=== PATIENT | male | born 1935 | race Caucasian/White ===

== ENCOUNTER 2019-11-19 18:53 | Inpatient (IN) ==
[2019-11-19] MEDS ORDERED: SODIUM CHLORIDE 0.9% 1000ML 1,000 ML IV SCH (19:45)
--- NOTE | 2019-11-19 20:00 | CT Scan Report ---
CT head/brain wo con CLINICAL HISTORY: Closed head injury. Head pain. Patient on anticoagulants. COMPARISON STUDY: No previous studies for comparison. TECHNIQUE: Axial CT of the brain is performed from the vertex to the skull base. IV contrast was not administered for this examination. A dose lowering technique was utilized adhering to the principles of ALARA. CT DOSE: FINDINGS: No intra or extra-axial mass lesions are visualized. There is no CT evidence of acute cortical infarc tion. There is no evidence of midline shift. There is no acute hemorrhage. No calvarial fractures ar e visualized. There are minor white matter hypodensities likely on a small vessel basis. There is no evidence of pathologic ventricular dilatation. There is no evidence of acute sinusitis IMPRESSION: No acute intracranial findings ACT 112: Negative or not required by law. Electronically signed by: Servando De La Torre M.D. 11/19/2019 7:58 PM
--- NOTE | 2019-11-19 20:02 | CT Scan Report ---
CT OF THE CERVICAL SPINE CLINICAL HISTORY: Neck pain status post trauma COMPARISON STUDY: No previous studies for comparison. CT DOSE: 1021.34 mGy.cm TECHNIQUE: CT scan of the cervical spine was performed from the skull base to the thoracic inlet. Gracy ges are reviewed in the axial, sagittal, and coronal planes. IV contrast was not administered for thi s examination. A dose lowering technique was utilized adhering to the principles of ALARA. FINDINGS: The visualized portions of the lung apices reveal no evidence of pneumothorax. The prevertebral soft tissues are normal. No fractures or subluxations are visualized. There are multilevel degenerative changes. There is exuberant calcification the posterior longitudina l ligament at the C2-3 level with secondary spinal canal narrowing. IMPRESSION: 1. No evidence of acute fracture or traumatic subluxation 2. 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 Electronically signed by: Servando De La Torre M.D. 11/19/2019 8:00 PM
--- NOTE | 2019-11-19 20:17 | XRay Report ---
XR chest 1V portable CLINICAL HISTORY: weakness COMPARISON STUDY: No previous studies for comparison. FINDINGS: The heart is enlarged. There are postsurgical changes of midline sternotomy. There is a lef t subclavian dual-chamber central venous pacemaker. There is no failure. There is no focal pulmonary consolidation. There are minor basilar atelectatic changes.[ IMPRESSION: No active disease in the chest. ACT 112: Negative or not required by law. Electronically signed by: Servando De La Torre M.D. 11/19/2019 8:15 PM
[2019-11-19 20:38] LABS: Basophils # (auto) 0.03 K/uL (0-0.2); Basophils % (auto) 0.2 %; Eosinophils # (auto) 0.02 K/uL (0-0.5); Eosinophils % (auto) 0.1 %; Hematocrit (blood only) 38.7 % (42-52); Hemoglobin 13.1 g/dL (14.0-18.0); Immature Granulocytes # (auto) 0.06 K/uL (0.00-0.02); Immature Granulocytes % (auto) 0.4 %; Lymphocytes # (auto) 1.52 K/uL (1.2-3.4); Lymphocytes % (auto) 9.3 %; Mean Corpuscular Hemoglobin 31.7 pg (25-34); Mean Corpuscular Hgb Conc 33.9 g/dL (32-36); Mean Corpuscular Volume 93.7 fL (80-100); Mean Platelet Volume 11.6 fL (7.4-10.4); Monocytes # (auto) 1.67 K/uL (0.11-0.59); Monocytes % (auto) 10.2 %; Neutrophils # (auto) 13.04 K/uL (1.4-6.5); Neutrophils % (auto) 79.8 %; Platelet Count 196 K/uL (130-400); RDW Coefficient of Variation 12.9 % (11.5-14.5); Red Blood Count 4.13 M/uL (4.7-6.1); White Blood Count 16.34 K/uL (4.8-10.8)
[2019-11-19 21:08] LABS: Alanine Aminotransferase 50 U/L (12-78); Albumin Globulin Ratio 0.8 (0.9-2); Albumin Level 3.5 gm/dl (3.4-5.0); Alkaline Phosphatase 81 U/L (45-117); Aspartate Aminotransferase 141 U/L (15-37); BUN Creatinine Ratio 11.1 (10-20); Bilirubin,Total 0.9 mg/dl (0.2-1); Blood Urea Nitrogen 22 mg/dl (7-18); Calcium 9.6 mg/dl (8.5-10.1); Carbon Dioxide 26 mmol/L (21-32); Chloride 97 mmol/L (98-107); Est GFR (African American) 34.7; Est GFR (Non-African American) 29.9; Globulin 4.3 gm/dl (2.5-4.0); Glucose 358 mg/dl (70-99); Magnesium 1.8 mg/dl (1.8-2.4); Potassium 4.4 mmol/L (3.5-5.1); Sodium 131 mmol/L (136-145); Thyroid Stimulating Hormone 0.637 uIu/ml (0.300-4.500); Total Protein 7.8 gm/dl (6.4-8.2)
[2019-11-19 21:11] LABS: Troponin I 0.944 ng/ml (0-0.045)
[2019-11-19] MEDS ORDERED: ASPIRIN CHEW 324 MG PO STA (21:18)
[2019-11-19] MEDS ORDERED: NovoLIN-R INSULIN PER UNIT CHARGE SC STA (21:19)
[2019-11-19 21:21] LABS: Beta-Hydroxybutyrate 3.64 mg/dl (0.2-2.81)
[2019-11-19 21:22] LABS: Appearance Urine Cloudy (Clear); Bacteria Urine Automated Negative (Negative); Bilirubin Urine Negative (Negative); Blood Urine 3+ (Negative); Color Urine Orange; Glucose Urine UA 2+ (Negative); Ketones Urine Negative (Negative); Leukocyte Esterase Urine 2+ (Negative); Nitrite Urine Negative (Negative); Protein Urine 2+ (Negative); Specific Gravity Urine 1.017 (1.000-1.030); Urobilinogen Urine Negative (Negative); WBC Urine Automated >30 /hpf (0-5); pH Urine 6.5 (4.5-7.5)
[2019-11-19] MEDS ORDERED: cefTRIAXone SODIUM 2,000 MG/70 ML BAG IV STA (21:26)
--- NOTE | 2019-11-19 21:41 | Emergency Department Note ---
History of Present Illness General Chief complaint: Fall Stated complaint: FALLS, HEAD INJURY Source: patient and family Mode of arrival: ambulatory Limitations: no limitations and other History of Present Illness Provider complaint: fall, weakness, lying on floor overnight. Onset (ago): week(s) 1 Maximum Pain Intensity: 6 This patient is an 84-year-old male who presents emergency department with complaints of 1 week of generalized weakness. Patient ambulated to the restroom early this morning and apparently fell prior to getting back in bed. Over several hours he was able to "shimmy" himself back up to the bed. Patient states at approximately 3 AM he fell out of bed once again. Patient was on the bed until 4 PM this afternoon when his son came in to use the restroom. Patient does complain of a small hematoma on the left side of his head. He denies any syncopal episode or complete loss of consciousness. Patient was then assisted into bed. Patient said he has had generalized weakness and has not felt well over the course of a week. He denies any nausea, vomiting, fever, shortness of breath or chest discomfort. Past Med/Surg History Medical History (Updated 11/19/19 @ 21:56 by Coleen Escobar MD) Diabetes mellitus Surgical History (Updated 11/19/19 @ 21:56 by Coleen Escobar MD) Hx of right BKA (Chronic) Social History Preferred Language: Greek Feels Safe at Home: Yes Smoking Status: Former smoker Review of Systems See HPI for pertinent positives & negatives. and A total of 10 systems reviewed and were otherwise negative Physical Exam Vital Signs Vital Signs - 24 hr 11/19/19 18:58 11/19/19 20:28 11/19/19 20:29 Temperature 36.6 C Temperature Source Oral Pulse Rate - Lying Pulse Rate - Sitting Pulse Rate - Standing Pulse Rate 89 Pulse Rate [Right Finger] 87 Pulse Rhythm [Right Finger] Regular Pulse Strength [Right Finger] Normal Respiratory Rate 18 20 Respiratory Effort / Characteristics Non-Labored Spontaneous Non-Labored Spontaneous Respiratory Depth Normal Normal Respiratory Pattern Regular Blood Pressure - Lying Blood Pressure - Sitting Blood Pressure- Standing Blood Pressure 129/74 Blood Pressure [Right Arm] 134/75 Blood Pressure Mean 92 Blood Pressure Mean [Right Arm] 94 Blood Pressure Position Sitting Pulse Oximetry 95 96 96 Oxygen Delivery Method Room Air Room Air Room Air Sepsis Recent Fever Within 48 Hours No Sepsis Action Taken by Nursing No Action Required 11/19/19 21:08 Temperature Temperature Source Pulse Rate - Lying 92 H Pulse Rate - Sitting 99 H Pulse Rate - Standing 96 H Pulse Rate Pulse Rate [Right Finger] Pulse Rhythm [Right Finger] Pulse Strength [Right Finger] Respiratory Rate Respiratory Effort / Characteristics Respiratory Depth Respiratory Pattern Blood Pressure - Lying 123/59 L Blood Pressure - Sitting 134/75 Blood Pressure- Standing 112/58 L Blood Pressure Blood Pressure [Right Arm] Blood Pressure Mean Blood Pressure Mean [Right Arm] Blood Pressure Position Pulse Oximetry Oxygen Delivery Method Sepsis Recent Fever Within 48 Hours Sepsis Action Taken by Nursing Vital signs reviewed. General: Chronically ill-appearing 84 yo male, in no significant distress. HEENT: No scleral icterus, PERRLA, neck supple. Atraumatic. Cardiovascular: Regular rate and rhythm, no extra sounds. Pulmonary: Clear to auscultation bilaterally, normal work of breathing. Abdomen: Soft, nontender, nondistended, positive bowel sounds. Musculoskeletal: Atraumatic, no peripheral edema. Right below the knee amputation. Neurologic: Patient awake alert and oriented x 3, follows commands appropriately. Answers questions. Skin: Warm, dry, no rash Course Administered Medications Sodium Chloride (Nss 1000ml) 1,000 mls @ 125 mls/hr IV .Q8H YENNI Stop: 11/20/19 03:44 Last Admin: 11/19/19 20:28 Dose: 125 mls/hr Documented by: [id number] Ceftriaxone Sodium (Rocephin) 2,000 mg in 70 mls @ 140 mls/hr IV NOW STA Stop: 11/19/19 21:55 Last Admin: 11/19/19 21:32 Dose: 140 mls/hr Documented by: [id number] Discontinued Medications Aspirin (Aspirin) 324 mg PO NOW STA Stop: 11/19/19 21:19 Last Admin: 11/19/19 21:28 Dose: 324 mg Documented by: [id number] Insulin Human Regular (Novolin R U-100 Per Unit) 10 units SC NOW STA Stop: 11/19/19 21:20 Last Admin: 11/19/19 21:27 Dose: 10 units Documented by: [id number] Cosigned by: [id number] Medical Decision Making Differential Diagnosis Differential includes acute coronary syndrome, myocardial infarction, CVA, TIA, anemia, infection, pneumonia, UTI, pyelonephritis, poor nutrition, dehydration, electrolyte disturbance,hypoglycemia. Laboratory Data Attestation: I reviewed the patient's lab results. Result diagrams: 11/19/19 20:23 11/19/19 20:23 Lab Results 11/19/19 11/19/19 11/19/19 Range/Units 20:23 20:23 21:10 WBC 16.34 H (4.8-10.8) K/uL RBC 4.13 L (4.7-6.1) M/uL Hgb 13.1 L (14.0-18.0) g/dL Hct 38.7 L (42-52) % MCV 93.7 (80-100) fL MCH 31.7 (25-34) pg MCHC 33.9 (32-36) g/dL RDW Std Deviation 44.0 (36.4-46.3) fL RDW Coeff of [place] 12.9 (11.5-14.5) % Plt Count 196 (130-400) K/uL MPV 11.6 H (7.4-10.4) fL Immature Gran % (Auto) 0.4 % Neut % (Auto) 79.8 % Lymph % (Auto) 9.3 % [place] % (Auto) 10.2 % Eos % (Auto) 0.1 % Baso % (Auto) 0.2 % Immature Gran # (Auto) 0.06 H (0.00-0.02) K/uL Neut # (Auto) 13.04 H (1.4-6.5) K/uL Lymph # (Auto) 1.52 (1.2-3.4) K/uL [place] # (Auto) 1.67 H (0.11-0.59) K/uL Eos # (Auto) 0.02 (0-0.5) K/uL Baso # (Auto) 0.03 (0-0.2) K/uL Sodium 131 L (136-145) mmol/L Potassium 4.4 (3.5-5.1) mmol/L Chloride 97 L (98-107) mmol/L Carbon Dioxide 26 (21-32) mmol/L Anion Gap 9.0 (3-11) BUN 22 H (7-18) mg/dl Creatinine 1.99 H (0.6-1.4) mg/dl Est Cr Clr Drug Dosing Not Reportable Est GFR ( Amer) 34.7 Est GFR (Non-Af Amer) 29.9 BUN/Creatinine Ratio 11.1 (10-20) Glucose 358 H* (70-99) mg/dl Calcium 9.6 (8.5-10.1) mg/dl Magnesium 1.8 (1.8-2.4) mg/dl Total Bilirubin 0.9 (0.2-1) mg/dl AST 141 H (15-37) U/L ALT 50 (12-78) U/L Alkaline Phosphatase 81 (45-117) U/L Troponin I 0.944 H* (0-0.045) ng/ml Total Protein 7.8 (6.4-8.2) gm/dl Albumin 3.5 (3.4-5.0) gm/dl Globulin 4.3 H (2.5-4.0) gm/dl Albumin/Globulin Ratio 0.8 L (0.9-2) Beta-Hydroxybutyric Acd 3.64 H (0.2-2.81) mg/dl TSH 0.637 (0.300-4.500) uIu/ml Urine Color [place] Urine Appearance Cloudy A (Clear) Urine pH 6.5 (4.5-7.5) Ur Specific [place] 1.017 (1.000-1.030) Urine Protein 2+ H (Negative) Urine Glucose (UA) 2+ H (Negative) Urine Ketones Negative (Negative) Urine Blood 3+ H (Negative) Urine Nitrite Negative (Negative) Urine Bilirubin Negative (Negative) Urine Urobilinogen Negative (Negative) Ur Leukocyte Esterase 2+ H (Negative) Urine WBC (Auto) >30 H (0-5) /hpf Urine RBC (Auto) 10-30 H (0-4) /hpf U Hyaline Cast (Auto) 1-5 (0-5) /lpf U Epithel Cells (Auto) 5-10 H (0-5) /lpf Urine Bacteria (Auto) Negative (Negative) Imaging Data Attestation: I personally reviewed and interpreted this imaging study as follows: Radiologist's Impression: CT head/brain wo con CLINICAL HISTORY: Closed head injury. Head pain. Patient on anticoagulants. COMPARISON STUDY: No previous studies for comparison. TECHNIQUE: Axial CT of the brain is performed from the vertex to the skull base. IV contrast was not administered for this examination. A dose lowering technique was utilized adhering to the principles of ALARA. CT DOSE: FINDINGS: No intra or extra-axial mass lesions are visualized. There is no CT evidence of acute cortical infarction. There is no evidence of midline shift. There is no acute hemorrhage. No calvarial fractures are visualized. There are minor white matter hypodensities likely on a small vessel basis. There is no evidence of pathologic ventricular dilatation. There is no evidence of acute sinusitis IMPRESSION: No acute intracranial findings ACT 112: Negative or not required by law. Electronically signed by: Servando De La Torre M.D. 11/19/2019 7:58 PM Dictated: 11/19/191956 Transcribed: 11/19/191956CT OF THE CERVICAL SPINE CT C-Spine CLINICAL HISTORY: Neck pain status post trauma COMPARISON STUDY: No previous studies for comparison. CT DOSE: 1021.34 mGy.cm TECHNIQUE: CT scan of the cervical spine was performed from the skull base to the thoracic inlet. Images are reviewed in the axial, sagittal, and coronal planes. IV contrast was not administered for this examination. A dose lowering technique was utilized adhering to the principles of ALARA. FINDINGS: The visualized portions of the lung apices reveal no evidence of pneumothorax. The prevertebral soft tissues are normal. No fractures or subluxations are visualized. There are multilevel degenerative changes. There is exuberant calcification the posterior longitudinal ligament at the C2-3 level with secondary spinal canal narrowing. IMPRESSION: 1. No evidence of acute fracture or traumatic subluxation 2. 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 Electronically signed by: Servando De La Torre M.D. 11/19/2019 8:00 PM Dictated: 11/19/191957 Transcribed: 11/19/191957 XR chest 1V portable CLINICAL HISTORY: weakness COMPARISON STUDY: No previous studies for comparison. FINDINGS: The heart is enlarged. There are postsurgical changes of midline sternotomy. There is a left subclavian dual-chamber central venous pacemaker. There is no failure. There is no focal pulmonary consolidation. There are minor basilar atelectatic changes.[ IMPRESSION: No active disease in the chest. ACT 112: Negative or not required by law. Electronically signed by: Servando De La Torre M.D. 11/19/2019 8:15 PM Dictated: 11/19/192014 Transcribed: 11/19/192014 ECG Data Attestation: I personally reviewed and interpreted this ECG as follows: Indication: + weakness Rate (beats per minute): 87 Rhythm: + sinus rhythm ECG Intervals/blocks: + First degree AV block and + Normal QT-c ECG ST segments: + Nonspecific ST abnormalities ECG Findings: no PACs and no PVCs Comparison ECG Date: no prior available Blood Pressure Blood Pressure Findings: Elevated blood pressure Blood Pressure Disposition: further management by hospitalist Head Trauma GCS Score: 15 MDM Narrative An order for cardiac monitoring was placed and the patient was found to be in a sinus rhythm with first-degree AV block at 87 bpm. This patient was evaluated and appeared to be in no significant distress. IV access was obtained and laboratory work was drawn. Patient was hydrated gently with normal saline solution. CT of the head and cervical spine was performed and reveals no evidence of acute traumatic finding. EKG reveals no evidence of acute ischemia. Patient has no records at our facility and [facility]. Laboratory work reveals a WBC of 16, troponin of 0.9 and a positive UA. Patient was given 2 g of IV ceftriaxone. I did discuss the findings with the patient's daughter. Patient and family agree to hospitalization. The hospitalist service was consulted for further management. Impression & Plan Hx of right BKA, Acute hyperglycemia, UTI (urinary tract infection) Discharge Plan Visit Data Chief Complaint: Fall Stated Complaint: FALLS, HEAD INJURY ED Provider: Coleen Escobar Discharge Problem: Hx of right BKA, Acute hyperglycemia, UTI (urinary tract infection) Forms Stand Alone Forms: [facility] Discharge Problem: UTI (urinary tract infection) Qualifiers: Urinary tract infection type: acute cystitis Hematuria presence: without hematuria Qualified Code(s): N30.00 - Acute cystitis without hematuria
[2019-11-19 22:05] LABS: Creatine Kinase 9017 U/L (39-308)
[2019-11-19 22:19] LABS: INR 1.1 (0.9-1.1); Prothrombin Time 11.4 Seconds (9.0-12.0)
--- NOTE | 2019-11-19 22:52 | History & Physical Report ---
Date of Service November 19, 2019 Assessment & Plan (1) UTI (urinary tract infection): 84 yo M with PMH DM w/neuropathy, Hypothyroidism, HLD, CAD with CABGx3 presents with weakness after mechanical fall at home where he was unable to get up found to have positive UA, elevated CK, elevated troponin. Rhabdomyolysis -CK 9017 on admission. Repeat in AM. Urine with myoglobinuria. JOSÉ -nontraumatic, likely 2/2 muscle compression -gentle IVF with NSS at 100 mls/hr. Unclear of pt's EF, as he is new to our facility Elevated Trop -admit to med tele -Trop 0.944 on admission. Initially thought to be likely 2/2 demand with low concern for ACS. Repeat trop increased to 7.60 while pt still remained asymptomatic. Repeat trop pending -EKG reveals no evidence of acute ischemia. Repeat EKG unchanged: Sinus rhythm with 1st degree A-V block -decision made to start standard heparin gtt w/o bolus given considerable increase in trop level. Pt ASA initiated in ED UTI -UA: 2+LE, >30 WBC. WBC 16.34 on admission -urine cx pending -likely explaining pt's generalized weakness -Coverage with IV Ceftriaxone Fall -CT of the head and cervical spine was performed and reveals no evidence of acute traumatic finding -PT/OT eval pending -Fall precautions ordered CAD/HLD -cont ASA 81mg, carvedilol 3.125mg, simvastatin 20mg DM w/Neuropathy -hold home metformin. SSI -cont gabapentin 300 mg Hypothyroidism -cont levothyroxine 50mcg FEN/GI: NSS at 100. DM Diet DVT Prophylaxis: IV Heparin, SCD's Full Code Dispo: [employer] [place] History of Present Illness Chief Complaint: fall Primary Care Provider: RAHUL PCP 84 yo M with PMH DM w/neuropathy, Hypothyroidism, HLD, CAD with CABGx3 presents after mechanical fall at home. He is [facility] and is new to [facility], unclear of most of PMH. Pt notes that he went to bed and woke up around 10 pm last night to use the restroom; however, he had forgotten to keep the light on before going to sleep and as a result tripped over rug and fell on backside. Pt has had generalized weakness over past week, and could not gather strength to pull himself up to bed immediately. Pt laid on floor from 10pm-4AM. Eventually was able to wiggle his way up to bed very slowly. At 6AM, pt fell out of bed onto floor this time landing on stomach and pinned his arms. Pt laid on floor this time from 6AM to 430PM when his son found him. Pt denies and F/N/V/D, chills, CP, preceding palpitations, SOB, syncope or near syncope, preceding lightheadedness/dizziness, LOC, urinary sxs of dysuria or urgency, sick contacts or recent travel. Admits to increased urinary frequency, but notes it is because he is drinking a lot more water as directed by his physician. Pt with no other acute concerns or complaints. Pertinent Labs: WBC 16.34, Hgb 13.1, Na 131, Cr 1.99, Glu 358, Beta Hydroxybutyric Acid 3.64, AST 141, CK 9017, Trop 0.944 UA: 2+ Glu, 3+ blood, 2+LE, >30 WBC EKG: Sinus Rhythm with 1st degree AV Block Head CT: No acute intracranial findings C-spine CT: No evidence of acute fracture or traumatic subluxation. 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 with secondary spinal canal narrowing CXR: No active disease in the chest ER Course: NSS, Insulin 10 units, ASA 324mg, IV Rocephin 2g Surgical Hx: R BKA Allergies Allergy/AdvReac Type Severity Reaction Status Date / Time lisinopril Allergy Unknown Hyperkalemi Verified 11/19/19 22:09 a Home Medications Home Medications Medication Instructions Recorded Confirmed Type aspirin 81 mg PO DAILY 11/19/19 11/19/19 History carvedilol 3.125 mg PO BID 11/19/19 11/19/19 History cholecalciferol (vitamin D3) 25 mcg PO DAILY 11/19/19 11/19/19 History [Vitamin D3] gabapentin 300 mg PO HS 11/19/19 11/19/19 History insulin aspart U-100 [Novolog See Rx Instructions .ROUTE .COMPLEX 11/19/19 11/19/19 History Flexpen U-100 Insulin] insulin glargine [Lantus U-100 45 unit SUBCUT QAM 11/19/19 11/19/19 History Insulin] levothyroxine 50 mcg PO QAM 11/19/19 11/19/19 History metformin 500 mg PO BID 11/19/19 11/19/19 History simvastatin 20 mg PO HS 11/19/19 11/19/19 History Past Med/Surg History Medical History (Updated 11/20/19 @ 23:40 by Nacho Wasserman MD) CAD (coronary artery disease) Diabetes mellitus Diabetic neuropathy Dyslipidemia Hypothyroidism Surgical History (Updated 11/20/19 @ 18:26 by Luis Antonio Campos MD) Hx of right BKA (Chronic) S/P CABG (coronary artery bypass graft) S/P placement of cardiac pacemaker Social History Preferred Language: Icelandic Communication Ability: Effective Beliefs That Will Affect Care: None Current Living Situation: Alone Other Information That Helps Us Care for You: No Feels Safe at Home: Yes Safety Concerns: Feels Safe At This Time Smoking Status: Former smoker Do You Dip or Chew Tobacco: Yes ; Second Hand Exposure: No ; Tobacco Cessation Education Requested by Patient: No Hx Alcohol Use: Yes Hx Substance Use: No Review of Systems Review of Systems: All systems reviewed & are unremarkable except as noted in HPI & below Physical Exam Constitutional: WD/WN, vitals as above Eyes: PERRL, conjunctivae normal, anicteric sclerae ENMT: external ear and nose normal, oropharynx normal Head atraumatic Respiratory: normal respiratory effort, lungs clear to auscultation Cardiovascular: RRR, no murmur, no edema Gastrointestinal (Abdomen): normal bowel sounds, soft, nontender, no hepatosplenomegaly Musculoskeletal: R BKA Skin: no rashes, warm and dry Trauma: + abrasion (on arms) Psychiatric: A+Ox3, euthymic affect Results & Data Results & Data ([facility]) Vital Signs (Past 12 Hours) Vital Signs Temp Pulse Pulse Resp BP BP Pulse Ox 11/19/19 22:08 89 20 121/68 91 11/19/19 20:29 87 20 134/75 96 11/19/19 20:28 96 11/19/19 18:58 36.6 C 89 18 129/74 95 Laboratory Results Laboratory Results - last 24 hr 11/19/19 11/19/19 11/19/19 20:23 20:23 20:23 WBC 16.34 H RBC 4.13 L Hgb 13.1 L Hct 38.7 L MCV 93.7 MCH 31.7 MCHC 33.9 RDW Std Deviation 44.0 RDW Coeff of [place] 12.9 Plt Count 196 MPV 11.6 H Immature Gran % (Auto) 0.4 Neut % (Auto) 79.8 Lymph % (Auto) 9.3 [place] % (Auto) 10.2 Eos % (Auto) 0.1 Baso % (Auto) 0.2 Immature Gran # (Auto) 0.06 H Neut # (Auto) 13.04 H Lymph # (Auto) 1.52 [place] # (Auto) 1.67 H Eos # (Auto) 0.02 Baso # (Auto) 0.03 PT 11.4 INR 1.1 APTT 28.0 PTT Ratio 1.0 Sodium 131 L Potassium 4.4 Chloride 97 L Carbon Dioxide 26 Anion Gap 9.0 BUN 22 H Creatinine 1.99 H Est Cr Clr Drug Dosing Not Reportable Est GFR ( Amer) 34.7 Est GFR (Non-Af Amer) 29.9 BUN/Creatinine Ratio 11.1 Glucose 358 H* POC Glucose Calcium 9.6 Magnesium 1.8 Total Bilirubin 0.9 AST 141 H ALT 50 Alkaline Phosphatase 81 Total Creatine Kinase 9017 H Troponin I 0.944 H* Total Protein 7.8 Albumin 3.5 Globulin 4.3 H Albumin/Globulin Ratio 0.8 L Beta-Hydroxybutyric Acd 3.64 H TSH 0.637 Urine Color Urine Appearance Urine pH Ur Specific [place] Urine Protein Urine Glucose (UA) Urine Ketones Urine Blood Urine Nitrite Urine Bilirubin Urine Urobilinogen Ur Leukocyte Esterase Urine WBC (Auto) Urine RBC (Auto) U Hyaline Cast (Auto) U Epithel Cells (Auto) Urine Bacteria (Auto) 11/19/19 11/19/19 21:10 22:18 WBC RBC Hgb Hct MCV MCH MCHC RDW Std Deviation RDW Coeff of [place] Plt Count MPV Immature Gran % (Auto) Neut % (Auto) Lymph % (Auto) [place] % (Auto) Eos % (Auto) Baso % (Auto) Immature Gran # (Auto) Neut # (Auto) Lymph # (Auto) [place] # (Auto) Eos # (Auto) Baso # (Auto) PT INR APTT PTT Ratio Sodium Potassium Chloride Carbon Dioxide Anion Gap BUN Creatinine Est Cr Clr Drug Dosing Est GFR ( Amer) Est GFR (Non-Af Amer) BUN/Creatinine Ratio Glucose POC Glucose 294 H Calcium Magnesium Total Bilirubin AST ALT Alkaline Phosphatase Total Creatine Kinase Troponin I Total Protein Albumin Globulin Albumin/Globulin Ratio Beta-Hydroxybutyric Acd TSH Urine Color [place] Urine Appearance Cloudy A Urine pH 6.5 Ur Specific [place] 1.017 Urine Protein 2+ H Urine Glucose (UA) 2+ H Urine Ketones Negative Urine Blood 3+ H Urine Nitrite Negative Urine Bilirubin Negative Urine Urobilinogen Negative Ur Leukocyte Esterase 2+ H Urine WBC (Auto) >30 H Urine RBC (Auto) 10-30 H U Hyaline Cast (Auto) 1-5 U Epithel Cells (Auto) 5-10 H Urine Bacteria (Auto) Negative Medications Administered Current Inpatient Medications Sodium Chloride (Nss 1000ml) 1,000 mls @ 125 mls/hr IV .Q8H YENNI Stop: 11/20/19 03:44 Last Admin: 11/19/19 20:28 Dose: 125 mls/hr Documented by: Code Status & VTE Plan Code Status FULL Supervising Physician Co-Signing Physician Notes Attending addendum: I have physically seen this patient, have supervised the medical residents activities, and agree with the H&P unless as otherwise noted. Assessment and Plan: Non-STEMI/CAD/hypertension- Troponin elevated 0.944. The patient will be admitted to telemetry for serial cardiac enzymes, serial EKG's, cardiac rhythm monitoring and a 2-D echocardiogram with Dopplers. Heparin drip standard concentration without bolus per protocol. Continue aspirin 81 mg daily, carvedilol 3.125 mg p.o. twice daily and simvastatin 20 mg p.o. daily. Consult cardiology. Rhabdomyolysis/UTI- CK elevated 9017, follow serially. Normal saline at 100 mils per hour. Ceftriaxone 1 g IV daily. Follow urine culture and sensitivities. Remainder of orders and notations as noted. Resident Activity Tracking Resident Involvement: Resident Care Provided Care Provided: Adult Hospital Medicine (1) UTI (urinary tract infection) Hematuria presence: without hematuria Urinary tract infection type: acute cystitis Qualified Code(s): N30.00 - Acute cystitis without hematuria
[2019-11-20] MEDS ORDERED: GLUCAGON FOR INJ 1 MG VIAL SQ PRN (01:12)
[2019-11-20] MEDS ORDERED: DEXTROSE 50% 50 ML SYRINGE IV PRN (01:12)
[2019-11-20] MEDS ORDERED: CARBOHYDRATES FOR HYPOGLYCEMIA PO PRN (01:12)
[2019-11-20] MEDS ORDERED: GLUCOSE 40% GEL 15 GM TUBE PO PRN (01:12)
[2019-11-20] MEDS ORDERED: ACETAMINOPHEN 325 MG TAB PO PRN (01:12)
[2019-11-20] MEDS ORDERED: ONDANSETRON INJ 2 MG/ML 2 ML VIAL IV PRN (01:12)
[2019-11-20] MEDS ORDERED: ALUMINUM/MAGNESIUM SUSP 30 ML UDC PO PRN (01:12)
[2019-11-20] MEDS ORDERED: SODIUM CHLORIDE 0.9% 1000ML 1,000 ML IV SCH (01:12)
[2019-11-20] MEDS ORDERED: GLUCOSE 10 TABS/TUBE PO PRN (01:12)
[2019-11-20] MEDS ORDERED: PATIENT'S HEIGHT AND/OR WEIGHT NEEDED SCH (01:30)
[2019-11-20 02:31] LABS: Basophils # (auto) 0.03 K/uL (0-0.2); Basophils % (auto) 0.2 %; Eosinophils # (auto) 0.14 K/uL (0-0.5); Eosinophils % (auto) 1.1 %; Hemoglobin 11.8 g/dL (14.0-18.0); Immature Granulocytes # (auto) 0.05 K/uL (0.00-0.02); Immature Granulocytes % (auto) 0.4 %; Lymphocytes # (auto) 2.08 K/uL (1.2-3.4); Mean Corpuscular Hemoglobin 31.1 pg (25-34); Mean Corpuscular Hgb Conc 33.7 g/dL (32-36); Mean Corpuscular Volume 92.3 fL (80-100); Mean Platelet Volume 11.2 fL (7.4-10.4); Monocytes % (auto) 9.2 %; Neutrophils # (auto) 9.49 K/uL (1.4-6.5); Neutrophils % (auto) 73.1 %; Platelet Count 172 K/uL (130-400); Red Blood Count 3.79 M/uL (4.7-6.1); White Blood Count 12.99 K/uL (4.8-10.8)
[2019-11-20 02:50] LABS: BUN Creatinine Ratio 13.1 (10-20); Calcium 8.8 mg/dl (8.5-10.1); Creatinine Clr Calc Pharmacy 30.1 ml/min; Est GFR (African American) 41.7
[2019-11-20] MEDS: HEPARIN SODIUM/DEXTROSE 25,000 UNITS/500 ML BAG IV SCH (05:41)
[2019-11-20] MEDS: LEVOTHYROXINE SODIUM 50 MCG TABLET PO SCH (05:50)
[2019-11-20] MEDS: Heparin IV Standard *NO* Bolus IV SCH ×2 (07:25→07:26)
[2019-11-20] MEDS: LACTATED RINGER'S 1,000 ML IV SCH ×3 (07:57→20:59)
[2019-11-20] MEDS ORDERED: PHARMACY GLYCEMIC MGMT CONSULT PRN (08:02)
[2019-11-20] MEDS: CHOLECALCIFEROL 1,000 UNITS 25 MCG TAB PO SCH (08:37)
[2019-11-20] MEDS: ASPIRIN 81 MG ECTAB PO SCH (08:37)
[2019-11-20] MEDS: INSULIN ASPART 100 UNITS/ML 3 ML PEN SC SCH ×4 (08:37→21:00)
[2019-11-20] MEDS: carvediloL 3.125 MG TAB PO SCH ×2 (08:37→20:15)
[2019-11-20] MEDS ORDERED: INSULIN GLARGINE SOLOSTAR 100 UNITS/ML 3 ML PEN SC SCH (09:00)
--- NOTE | 2019-11-20 10:55 | Pharmacy Report ---
Glycemic Control Consultation - Date of Service November 20, 2019 - Scope Scope: Glycemic Pharmacist consulted for glycemic control and to write orders per [facility] inpatient glycemic control protocol. - Objective Weight: 76.5 kg Accuchecks BSG (last 24hrs): 11/19/19 11/19/19 11/19/19 20:23 22:18 23:56 Glucose 358 H* POC Glucose 294 H 259 H 11/20/19 11/20/19 02:17 07:32 Glucose 180 H POC Glucose 133 H Laboratory Data (last 24hrs): 11/19/19 11/20/19 20:23 02:17 Potassium 4.4 4.0 Carbon Dioxide 26 25 Anion Gap 9.0 9.0 Creatinine 1.99 H 1.71 H Est Cr Clr Drug Dosing Not Reportable 30.1 Beta-Hydroxybutyric Acd 3.64 H - Recent Pertinent Medications Outpatient Anti-diabetic Regimen: * Lantus 45 units Qam, Novolog 5 units with breakfast/lunch, 22 units with dinner * A1c = pending Risk Factors for Insulin Resistance: * Diet: NPO - Assessment & Plan Assessment & Plan: ASSESSMENT: * 84 year old male presenting with weakness after mechanical fall at home, concern for UTI. PMHx significant for DM, hypothyroidism, HLD, CAD, CABG * Pharmacy consulted for glycemic management - NPO on admission * BSGs elevated last evening >300 - given 10 units of SQ insulin - fasting BSG this AM 133 mg/dL * Due to NPO status this AM will give ~30% of basal dose for this AM / split to BID dosing as unclear if BSGs well controlled at home. A1C pending for tomorrow PLAN FOR INPATIENT GLYCEMIC CONTROL: * Basal insulin * Lantus 14 units this AM given * Continue scale for Lantus BID based upon BSG - see MAR for further info * Bolus insulin * NovoLog per scale ACHS or Q6hrs while NPO * Goal Range: Low 100 mg/dL - High 160 mg/dL * Correction Factor: 25 mg/dL/unit * Nutritional / Prandial insulin per carb ratio of 1 unit per 8 grams CHO consumed * Please note that the plan above was derived based on current level of insulin resistance and hospital stress. These recommendations are appropriate for inpatient admission only. Plan of care upon discharge will need to be reassessed to avoid potential outpatient hypo/hyperglycemia. Thank you.
[2019-11-20 12:30] LABS: Partial Thromboplastin Ratio 1.7
[2019-11-20 12:34] LABS: Partial Thromboplastin Time 47.4 Seconds (21.0-31.0)
[2019-11-20] MEDS ORDERED: PERFLUTREN LIPID MICROSPHERE (DEFINITY) IV ONE (13:57)
--- NOTE | 2019-11-20 18:19 | XCELERA ---
[id number]
--- NOTE | 2019-11-20 18:36 | Cardiology Consultation ---
Date of Consultation November 20, 2019 Assessment & Plan (1) Non-ST elevation (NSTEMI) myocardial infarction: (2) CAD (coronary artery disease): (3) S/P CABG (coronary artery bypass graft): (4) Dyslipidemia: (5) Rhabdomyolysis: ASSESSMENT/PLAN: 1. NSTEMI: Troponin level can be elevated with rhabdomyolysis. Agree that troponin level is a bit more elevated than expected. He did have some ECG changes as well. Interestingly however he had no cardiac symptoms despite questioning several times. In light of lack of symptoms and renal insufficiency, would not recommend invasive ischemic evaluation at this time. Can consider outpatient myocardial perfusion study in the future to evaluate ischemic burden. Certainly, if he should develop anginal symptoms, would then reconsider invasive approach. Continue aspirin 81 mg daily. Heparin drip has been started by primary service. He did not present with acute coronary syndrome but given ECG changes and significant underlying CAD based on prior CABG history, can continue for a total of 48 hours. Continue beta-lizett. Continue statin therapy. 2. CAD s/p CABG x 3: No angina. No heart failure symptoms. Continue medical therapy. Request records for cardiac catheterization/CABG report. 3. Dyslipidemia: Continue statin therapy. 4. Pacemaker: Indication unknown. Follows with Cardiology through the [place] [facility]. 5. Rhabdomyolysis: As per primary service. 6. UTI: Given that he is feeling better with antibiotics, his weakness may have been related to his UTI. 7. Disposition: Recommended he follow-up with his primary unemployment examiner soon after discharge to further evaluate for symptoms and for planning of ischemic evaluation if deemed appropriate at that time.Cardiology will sign off at this time. Please call with any other questions or concerns. Thank you for allowing me to participate in the care of your patient. Please call for any other questions or concerns. Sincerely, Ankur Campos M.D. History of Present Illness Reason for Consultation: NSTEMI Requesting Physician: Dr. Wasserman Attending Physician: Nacho Wasserman MD History of Present Illness Mr. Ortega is a pleasant 84-year-old gentleman with history significant for multivessel CAD status post CABG x3 in 2005, pacemaker placement 2005, dyslipidemia, and type 2 diabetes. He was hospitalized on 11/19/2019 with rhabdomyolysis after spending several hours on the floor. His cardiac history significant for CABG x3 and pacemaker which were reportedly performed in 2005 at the [facility]. He states that he was experiencing exertional chest discomfort leading up to his CABG. He reports not having any cardiac catheterization since then and has not had any further angina. He follows with a unemployment examiner through the [place] system and believes that the unemployment examiner's name is Dr. Valdes. He follows up on an annual basis. He also has remote monitoring of his pacemaker available. On 11/18/2019, he felt weak throughout the day. At approximately 10:00 p.m. and later that night, he fell to the floor. He denies syncope. He denies chest pain, shortness of breath, palpitations. He was unable to get up and laid on the floor until 3:00 a.m.. He was then able to get back into bed with help only to once again end up on the floor at approximately 6:00 a.m.. He was unable to fully stand and slid downward out of bed. This time he laid on the floor until approximately 4:00 p.m.. He was found to have elevated CPK levels as well as elevated troponin levels. The troponin however increased and peaked at 11.4. His CPK level peak was 9017. He was also noted to have acute renal insufficiency although no baseline labs were available. But his creatinine has improved since presentation. He is being treated with antibiotics for UTI as his urine culture is growing gram-negative bacilli. He states that his strength has improved. He once denies chest discomfort, shortness of breath, or any bleeding such as melena, hematochezia, or hematuria. Review of systems: As above. Review of systems otherwise negative/unremarkable. Family history: No known premature CAD. Social history: He quit smoking in 1984 after approximately 2 packs per day for 10 years. No significant alcohol. No drug abuse. He is a . He lives alone. He has 4 sons and 1 daughter. He has 14 grandchildren and 25 great grandchildren. He is unaccompanied. Allergies Allergy/AdvReac Type Severity Reaction Status Date / Time lisinopril Allergy Unknown Hyperkalemi Verified 11/19/19 22:09 a Home Medications Home Medications Medication Instructions Recorded Confirmed Type aspirin 81 mg PO DAILY 11/19/19 11/19/19 History carvedilol 3.125 mg PO BID 11/19/19 11/19/19 History cholecalciferol (vitamin D3) 25 mcg PO DAILY 11/19/19 11/19/19 History [Vitamin D3] gabapentin 300 mg PO HS 11/19/19 11/19/19 History insulin aspart U-100 [Novolog See Rx Instructions .ROUTE .COMPLEX 11/19/19 11/19/19 History Flexpen U-100 Insulin] insulin glargine [Lantus U-100 45 unit SUBCUT QAM 11/19/19 11/19/19 History Insulin] levothyroxine 50 mcg PO QAM 11/19/19 11/19/19 History metformin 500 mg PO BID 11/19/19 11/19/19 History simvastatin 20 mg PO HS 11/19/19 11/19/19 History Patient History Medical History (Updated 11/20/19 @ 18:25 by Luis Antonio Campos MD) CAD (coronary artery disease) Diabetes mellitus Diabetic neuropathy Dyslipidemia Hypothyroidism Surgical History (Updated 11/20/19 @ 18:26 by Luis Antonio Campos MD) Hx of right BKA (Chronic) S/P CABG (coronary artery bypass graft) S/P placement of cardiac pacemaker Social History Preferred Language: Luxembourgish Communication Ability: Effective Beliefs That Will Affect Care: None Current Living Situation: Alone Other Information That Helps Us Care for You: No Feels Safe at Home: Yes Safety Concerns: Feels Safe At This Time Smoking Status: Former smoker Do You Dip or Chew Tobacco: Yes ; Second Hand Exposure: No ; Tobacco Cessation Education Requested by Patient: No Hx Alcohol Use: Yes Hx Substance Use: No Physical Exam Physical Exam: Gen.: No acute distress. Alert and oriented. HEENT: Anicteric sclera. Neck: No JVD. No bruits. Normal carotid upstrokes bilaterally. Cardiac: PMI was nondisplaced. No ventricular heave. Regular rate and rhythm. Normal S1-S2. No murmurs, rubs, or gallops. Pulmonary: Clear to auscultation bilaterally without wheezes, rales, or rhonchi. Abdomen: Soft, nontender, nondistended, with normoactive bowel sounds. No bruits noted. Extremities: 2+ right radial pulse. Weak left radial pulse. Right BKA noted. Left dorsalis pedis pulse is weak. No edema or cyanosis. Psychiatric: Affect appears appropriate. Results & Data ([facility]) Vital Signs (Past 12 Hours) Vital Signs Temp Pulse Pulse Resp BP Pulse Ox 11/20/19 16:09 85 11/20/19 15:47 36.5 C 73 18 107/65 94 11/20/19 13:44 92 11/20/19 11:28 37.0 C 77 18 110/68 90 11/20/19 07:29 63 11/20/19 07:06 37.7 C H 86 18 115/64 94 Intake & Output 11/18/19 11/19/19 11/20/19 11/21/19 06:59 06:59 06:59 06:59 Intake Total 738.75 / 738.75 1840.767 / 1840.767 Output Total 150 / 150 125 / 125 Balance 588.75 / 588.75 1715.767 / 1715.767 Weight 76.5 kg Laboratory Results Laboratory Results - last 24 hr 11/19/19 11/19/19 11/19/19 20:23 20:23 20:23 WBC 16.34 H RBC 4.13 L Hgb 13.1 L Hct 38.7 L MCV 93.7 MCH 31.7 MCHC 33.9 RDW Std Deviation 44.0 RDW Coeff of [place] 12.9 Plt Count 196 MPV 11.6 H Immature Gran % (Auto) 0.4 Neut % (Auto) 79.8 Lymph % (Auto) 9.3 Harper % (Auto) 10.2 Eos % (Auto) 0.1 Baso % (Auto) 0.2 Immature Gran # (Auto) 0.06 H Neut # (Auto) 13.04 H Lymph # (Auto) 1.52 Harper # (Auto) 1.67 H Eos # (Auto) 0.02 Baso # (Auto) 0.03 PT 11.4 INR 1.1 APTT 28.0 PTT Ratio 1.0 Sodium 131 L Potassium 4.4 Chloride 97 L Carbon Dioxide 26 Anion Gap 9.0 BUN 22 H Creatinine 1.99 H Est Cr Clr Drug Dosing Not Reportable Est GFR ( Amer) 34.7 Est GFR (Non-Af Amer) 29.9 BUN/Creatinine Ratio 11.1 Glucose 358 H* POC Glucose Estimat Average Glucose Hemoglobin A1c Calcium 9.6 Magnesium 1.8 Total Bilirubin 0.9 AST 141 H ALT 50 Alkaline Phosphatase 81 Total Creatine Kinase 9017 H Troponin I 0.944 H* Total Protein 7.8 Albumin 3.5 Globulin 4.3 H Albumin/Globulin Ratio 0.8 L Beta-Hydroxybutyric Acd 3.64 H TSH 0.637 Urine Color Urine Appearance Urine pH Ur Specific [place] Urine Protein Urine Glucose (UA) Urine Ketones Urine Blood Urine Nitrite Urine Bilirubin Urine Urobilinogen Ur Leukocyte Esterase Urine WBC (Auto) Urine RBC (Auto) U Hyaline Cast (Auto) U Epithel Cells (Auto) Urine Bacteria (Auto) 11/19/19 11/19/19 11/19/19 21:10 22:18 23:56 WBC RBC Hgb Hct MCV MCH MCHC RDW Std Deviation RDW Coeff of [place] Plt Count MPV Immature Gran % (Auto) Neut % (Auto) Lymph % (Auto) Harper % (Auto) Eos % (Auto) Baso % (Auto) Immature Gran # (Auto) Neut # (Auto) Lymph # (Auto) Harper # (Auto) Eos # (Auto) Baso # (Auto) PT INR APTT PTT Ratio Sodium Potassium Chloride Carbon Dioxide Anion Gap BUN Creatinine Est Cr Clr Drug Dosing Est GFR ( Amer) Est GFR (Non-Af Amer) BUN/Creatinine Ratio Glucose POC Glucose 294 H 259 H Estimat Average Glucose Hemoglobin A1c Calcium Magnesium Total Bilirubin AST ALT Alkaline Phosphatase Total Creatine Kinase Troponin I Total Protein Albumin Globulin Albumin/Globulin Ratio Beta-Hydroxybutyric Acd TSH Urine Color [place] Urine Appearance Cloudy A Urine pH 6.5 Ur Specific [place] 1.017 Urine Protein 2+ H Urine Glucose (UA) 2+ H Urine Ketones Negative Urine Blood 3+ H Urine Nitrite Negative Urine Bilirubin Negative Urine Urobilinogen Negative Ur Leukocyte Esterase 2+ H Urine WBC (Auto) >30 H Urine RBC (Auto) 10-30 H U Hyaline Cast (Auto) 1-5 U Epithel Cells (Auto) 5-10 H Urine Bacteria (Auto) Negative 11/20/19 11/20/19 11/20/19 02:17 02:17 02:17 WBC 12.99 H RBC 3.79 L Hgb 11.8 L Hct 35.0 L MCV 92.3 MCH 31.1 MCHC 33.7 RDW Std Deviation 44.0 RDW Coeff of [place] 13.0 Plt Count 172 MPV 11.2 H Immature Gran % (Auto) 0.4 Neut % (Auto) 73.1 Lymph % (Auto) 16.0 Harper % (Auto) 9.2 Eos % (Auto) 1.1 Baso % (Auto) 0.2 Immature Gran # (Auto) 0.05 H Neut # (Auto) 9.49 H Lymph # (Auto) 2.08 Harper # (Auto) 1.20 H Eos # (Auto) 0.14 Baso # (Auto) 0.03 PT INR APTT PTT Ratio Sodium 137 Potassium 4.0 Chloride 103 Carbon Dioxide 25 Anion Gap 9.0 BUN 22 H Creatinine 1.71 H Est Cr Clr Drug Dosing 30.1 Est GFR ( Amer) 41.7 Est GFR (Non-Af Amer) 36.0 BUN/Creatinine Ratio 13.1 Glucose 180 H POC Glucose Estimat Average Glucose Hemoglobin A1c Calcium 8.8 Magnesium Total Bilirubin AST ALT Alkaline Phosphatase Total Creatine Kinase 8196 H Troponin I 7.600 H* Total Protein Albumin Globulin Albumin/Globulin Ratio Beta-Hydroxybutyric Acd TSH Urine Color Urine Appearance Urine pH Ur Specific [place] Urine Protein Urine Glucose (UA) Urine Ketones Urine Blood Urine Nitrite Urine Bilirubin Urine Urobilinogen Ur Leukocyte Esterase Urine WBC (Auto) Urine RBC (Auto) U Hyaline Cast (Auto) U Epithel Cells (Auto) Urine Bacteria (Auto) 11/20/19 11/20/19 11/20/19 07:32 08:10 11:43 WBC RBC Hgb Hct MCV MCH MCHC RDW Std Deviation RDW Coeff of [place] Plt Count MPV Immature Gran % (Auto) Neut % (Auto) Lymph % (Auto) Harper % (Auto) Eos % (Auto) Baso % (Auto) Immature Gran # (Auto) Neut # (Auto) Lymph # (Auto) Harper # (Auto) Eos # (Auto) Baso # (Auto) PT INR APTT 47.4 H* PTT Ratio 1.7 Sodium Potassium Chloride Carbon Dioxide Anion Gap BUN Creatinine Est Cr Clr Drug Dosing Est GFR ( Amer) Est GFR (Non-Af Amer) BUN/Creatinine Ratio Glucose POC Glucose 133 H Estimat Average Glucose Hemoglobin A1c Calcium Magnesium Total Bilirubin AST ALT Alkaline Phosphatase Total Creatine Kinase Troponin I 11.400 H* Total Protein Albumin Globulin Albumin/Globulin Ratio Beta-Hydroxybutyric Acd TSH Urine Color Urine Appearance Urine pH Ur Specific [place] Urine Protein Urine Glucose (UA) Urine Ketones Urine Blood Urine Nitrite Urine Bilirubin Urine Urobilinogen Ur Leukocyte Esterase Urine WBC (Auto) Urine RBC (Auto) U Hyaline Cast (Auto) U Epithel Cells (Auto) Urine Bacteria (Auto) 11/20/19 11/20/19 11/20/19 11:46 16:34 16:34 WBC RBC Hgb Hct MCV MCH MCHC RDW Std Deviation RDW Coeff of [place] Plt Count MPV Immature Gran % (Auto) Neut % (Auto) Lymph % (Auto) Harper % (Auto) Eos % (Auto) Baso % (Auto) Immature Gran # (Auto) Neut # (Auto) Lymph # (Auto) Harper # (Auto) Eos # (Auto) Baso # (Auto) PT INR APTT PTT Ratio Sodium Potassium Chloride Carbon Dioxide Anion Gap BUN Creatinine Est Cr Clr Drug Dosing Est GFR ( Amer) Est GFR (Non-Af Amer) BUN/Creatinine Ratio Glucose POC Glucose 148 H Estimat Average Glucose Pending Hemoglobin A1c Pending Calcium Magnesium Total Bilirubin AST ALT Alkaline Phosphatase Total Creatine Kinase Troponin I 5.970 H* Total Protein Albumin Globulin Albumin/Globulin Ratio Beta-Hydroxybutyric Acd TSH Urine Color Urine Appearance Urine pH Ur Specific [place] Urine Protein Urine Glucose (UA) Urine Ketones Urine Blood Urine Nitrite Urine Bilirubin Urine Urobilinogen Ur Leukocyte Esterase Urine WBC (Auto) Urine RBC (Auto) U Hyaline Cast (Auto) U Epithel Cells (Auto) Urine Bacteria (Auto) 11/20/19 16:37 WBC RBC Hgb Hct MCV MCH MCHC RDW Std Deviation RDW Coeff of [place] Plt Count MPV Immature Gran % (Auto) Neut % (Auto) Lymph % (Auto) Harper % (Auto) Eos % (Auto) Baso % (Auto) Immature Gran # (Auto) Neut # (Auto) Lymph # (Auto) Harper # (Auto) Eos # (Auto) Baso # (Auto) PT INR APTT PTT Ratio Sodium Potassium Chloride Carbon Dioxide Anion Gap BUN Creatinine Est Cr Clr Drug Dosing Est GFR ( Amer) Est GFR (Non-Af Amer) BUN/Creatinine Ratio Glucose POC Glucose 210 H Estimat Average Glucose Hemoglobin A1c Calcium Magnesium Total Bilirubin AST ALT Alkaline Phosphatase Total Creatine Kinase Troponin I Total Protein Albumin Globulin Albumin/Globulin Ratio Beta-Hydroxybutyric Acd TSH Urine Color Urine Appearance Urine pH Ur Specific [place] Urine Protein Urine Glucose (UA) Urine Ketones Urine Blood Urine Nitrite Urine Bilirubin Urine Urobilinogen Ur Leukocyte Esterase Urine WBC (Auto) Urine RBC (Auto) U Hyaline Cast (Auto) U Epithel Cells (Auto) Urine Bacteria (Auto) Diagnostic Findings Telemetry personally reviewed: Sinus rhythm. No arrhythmia noted. ECGs personally reviewed: ECG 11/19/2019 at 8:05 p.m.: Sinus rhythm with first-degree AV block at 87 bpm. Nonspecific T-wave abnormality. ECG 11/20/2019 at 4:35 a.m.: Sinus rhythm with first-degree AV block at [address]/T-wave abnormality with T-wave abnormality more evident in the anterolateral leads. ECG 11/20/2019 at 7:50 a.m.: NSR 80 bpm. Anterior T-wave inversion. Echo 11/20/2019 personally reviewed: Normal LV size with low-normal systolic function. Estimated EF 50-55%. No obvious regional wall motion abnormalities. No significant valvular abnormalities. Chest x-ray 11/19/2019: No active disease per Radiology. Medications Administered Current Inpatient Medications Acetaminophen (Tylenol) 650 mg PO Q4H PRN PRN Reason: pain/fever Stop: 12/20/19 01:11 Al Hydrox/Mg Hydrox/Simethicone (Maalox) 30 ml PO Q6H PRN PRN Reason: Dyspepsia Stop: 12/20/19 01:11 Aspirin (Ecotrin Ectab) 81 mg PO DAILY YENNI Stop: 12/20/19 08:59 Last Admin: 11/20/19 08:37 Dose: 81 mg Documented by: Carvedilol (Coreg) 3.125 mg PO BID YENNI Stop: 12/20/19 08:59 Last Admin: 11/20/19 08:37 Dose: 3.125 mg Documented by: Dextrose (Dextrose 50%) 25 - 50 ml IV UD PRN; Protocol PRN Reason: Hypoglycemia Protocol Stop: 12/20/19 01:11 Gabapentin (Neurontin) 300 mg PO HS [facility] Stop: 12/20/19 20:59 Glucagon (Glucagen) 1 mg SQ UD PRN; Protocol PRN Reason: Hypoglycemia Protocol Stop: 12/20/19 01:11 Glucose (Dex4 Glucose) 4 - 8 tabs PO UD PRN; Protocol PRN Reason: Hypoglycemia Protocol Stop: 12/20/19 01:11 Glucose (Glucose 40%) 15 - 30 gm PO UD PRN; Protocol PRN Reason: Hypoglycemia Protocol Stop: 12/20/19 01:11 Heparin Sodium/Dextrose (Heparin Sodium/Dextrose) 25,000 units in 500 mls @ 24 mls/hr IV .[id number] YENNI; Protocol Stop: 12/20/19 05:04 Last Titration: 11/20/19 13:15 Dose: 1,200 units/hr, 24 mls/hr Documented by: Lactated Ringer's (Lr) 1,000 mls @ 150 mls/hr IV .[id number] YENNI Stop: 12/20/19 07:44 Last Admin: 11/20/19 14:28 Dose: 150 mls/hr Documented by: Ceftriaxone Sodium 1,000 mg/ (Dextrose) 50 mls @ 100 mls/hr IV Q24H [facility]; Protocol Stop: 11/22/19 20:59 Insulin Aspart (Novolog Flexpen) 0 units SC ACHS [facility]; Protocol Stop: 12/20/19 07:29 Last Admin: 11/20/19 17:21 Dose: 8 units Documented by: Insulin Glargine (Lantus Solostar Pen) 0 units SC BID YENNI; Protocol Stop: 12/20/19 20:59 Levothyroxine Sodium (Synthroid) 50 mcg PO DAILYBB [facility] Stop: 12/20/19 06:29 Last Admin: 11/20/19 05:50 Dose: 50 mcg Documented by: Miscellaneous (Carbohydrates For Hypoglycemia) 15 - 30 gm PO UD PRN PRN Reason: Hypoglycemia Protocol Stop: 12/20/19 01:11 Miscellaneous Information (Consult Glycemic Management Pharmacy) 1 ea N/A UD PRN PRN Reason: Consult Stop: 12/20/19 08:01 Ondansetron HCl (Zofran) 4 mg IV Q6H PRN PRN Reason: Nausea Stop: 12/20/19 01:11 Simvastatin (Zocor) 20 mg PO HS [facility] Stop: 12/20/19 20:59 Vitamin D (Vitamin D3) 1,000 units PO DAILY [facility] Stop: 12/20/19 08:59 Last Admin: 11/20/19 08:37 Dose: 1,000 units Documented by: PG Care Time/CCT Total # of Minutes Spent Total Time Spent with Patient: Total time spent is greater than 50% in coordination of care (as documented) at patient's floor/unit and/or counseling patient: Coding Level of Care Code 45397 Initial Inpt Care Lvl 3 Diagnoses Non-ST elevation (NSTEMI) myocardial infarction I21.4 CAD (coronary artery disease) I25.10 S/P CABG (coronary artery bypass graft) Z95.1 Dyslipidemia E78.5 Rhabdomyolysis M62.82
[2019-11-20] MEDS: cefTRIAXone SODIUM 1,000 MG in DEXTROSE 5% 50 ML IV SCH (20:12)
[2019-11-20] MEDS: GABAPENTIN 300 MG CAP PO SCH (20:14)
[2019-11-20] MEDS: SIMVASTATIN 20 MG TAB PO SCH (20:15)
[2019-11-20] MEDS ORDERED: cefTRIAXone SODIUM 1,000 MG in DEXTROSE 5% 50 ML IV SCH (21:00)
[2019-11-20] MEDS: INSULIN GLARGINE SOLOSTAR 100 UNITS/ML 3 ML PEN SC SCH (21:01)
--- NOTE | 2019-11-20 23:28 | Hospitalist Progress Note ---
Date of Service November 20, 2019 Assessment & Plan (1) Fall: Suspect initially fall from tripping. No LOC. Second slide off bed more likely due to lack of sleep and possible concussion from first fall. However possible confusion noted prior to this from family therefore more suggestive that UTI as a possible contributing factor. No significant injuries apparent from fall. No groin/back pain on exam or when walking to suggest need for hip or back imaging. (2) Elevated troponin: Appreciate cardiology review. Not acute coronary syndrome however given EKG changes (although not dynamic) and significant underlying CAD - continue IV heparin for a total of 48 hours. Follow up with cardiology for consideration of outpatient myocardial perfusion study (3) Rhabdomyolysis: Continue IV fluids. Despite prior CAD history he has no history of CHF and no current concerns for this on exam despite plenty of IV fluids given. Will continue to monitor. Trend CK daily (4) CAD (coronary artery disease): ASA, statin, BB. No ACEi/ARB likely secondary to BP. (5) S/P CABG (coronary artery bypass graft): as above. [facility] (6) Dyslipidemia: Continue simvastatin (7) UTI (urinary tract infection): Urine culture - GNR. Continue IV ceftriaxone pending full culture results. 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 Pt reported baseline Cr 1.4 therefore does not meet criteria for JOSÉ. (11) DVT prophylaxis: Continue IV heparin drip as above Admission and Anticipated Discharge Date Admission Date: November 19, 2019 Anticipated date of discharge: 11/22/19 Subjective Patient reports feeling well. No current concerns or questions. Significantly elevated troponin this morning therefore consulted cardiology - however patient denies any chest pain, shortness of breath, presyncope/syncope, palpitations, claudication. He denies any urinary symptoms such as dysuria, urinary frequency, new back pain, fever or chills. He denies any longstanding prostate symptoms such as terminal dribbling, poor stream, urinary frequency or nocturia. He currently feels well and at his baseline/ Recapped history with this patient and consistent with H&P. Reports initially tripping due to poor light in the middle of the night causing his initial fall and inability to get up. Managed to eventually get to his bed and lie down to fall asleep for 2 hours but then slid out of bed in the morning and spent multiple hours on the floor till his son found him. Updated his daughter over the phone by patient request. All questions and concerns answered pending echo report. Review of Systems Review of Systems: All systems reviewed & are unremarkable except as noted in HPI & below Physical Exam Constitutional: WD/WN, vitals as above Eyes: PERRL, conjunctivae normal, anicteric sclerae ENMT: external ear and nose normal, oropharynx normal Respiratory: normal respiratory effort, lungs clear to auscultation Cardiovascular: RRR, no murmur, no edema Gastrointestinal (Abdomen): normal bowel sounds, soft, nontender, no hepatosplenomegaly Musculoskeletal: no cyanosis or clubbing, extremities motor strength 5/5 Skin: no rashes, warm and dry Trauma: + abrasion (on arms) Neurologic: moves all extremities and awake; no focal motor deficits and not confused Speech / Cognition: normal speech Motor/Sensory: no tremor, no pronator drift and no sensory deficit Psychiatric: A+Ox3, euthymic affect Results & Data Results & Data ([facility]) Vital Signs (Past 12 Hours) Vital Signs Temp Pulse Pulse Resp BP Pulse Ox 11/20/19 16:09 85 11/20/19 15:47 36.5 C 73 18 107/65 94 11/20/19 13:44 92 11/20/19 11:28 37.0 C 77 18 110/68 90 11/20/19 07:29 63 11/20/19 07:06 37.7 C H 86 18 115/64 94 11/20/19 05:07 36.7 C 78 18 113/63 91 PG Care Time/CCT Total # of Minutes Spent Total Time Spent with Patient: Total time spent is greater than 50% in coordination of care (as documented) at patient's floor/unit and/or counseling patient: Coding Level of Care Code 28841 Subseq Hosp Care Lvl 3 Diagnoses Fall W19.XXXA Encounter type: initial encounter Elevated troponin R79.89 Rhabdomyolysis M62.82 CAD (coronary artery disease) I25.10 S/P CABG (coronary artery bypass graft) Z95.1 Dyslipidemia E78.5 UTI (urinary tract infection) N30.00 Hematuria presence: without hematuria Urinary tract infection type: acute cystitis Diabetes mellitus E11.65; Z79.4 Diabetes mellitus complication status: with hyperglycemia Diabetes mellitus intermodal truck driver insulin use: with intermodal truck driver use Diabetes mellitus type: type 2 Hx of right BKA Z89.511 Chronic kidney disease, stage 3 N18.3 DVT prophylaxis Z29.9 (1) UTI (urinary tract infection) Hematuria presence: without hematuria Urinary tract infection type: acute cystitis Qualified Code(s): N30.00 - Acute cystitis without hematuria (2) Diabetes mellitus Diabetes mellitus complication status: with hyperglycemia Diabetes mellitus detention insulin use: with intermodal truck driver use Diabetes mellitus type: type 2 Qualified Code(s): E11.65 - Type 2 diabetes mellitus with hyperglycemia; Z79.4 - [facility] (current) use of insulin (3) Fall Encounter type: initial encounter Qualified Code(s): W19.XXXA - Unspecified fall, initial encounter
[2019-11-21] MEDS: HEPARIN SODIUM/DEXTROSE 25,000 UNITS/500 ML BAG IV SCH ×2 (01:13→23:33)
[2019-11-21] MEDS: LACTATED RINGER'S 1,000 ML IV SCH ×2 (03:05→11:19)
--- NOTE | 2019-11-21 05:20 | Billing Data ---
Date of Service November 21, 2019 Coding Level of Care Code 11891 Initial Inpt Care Lvl 3
--- NOTE | 2019-11-21 05:23 | Electrocardiogram Report ---
Test Reason : Blood Pressure : / mmHG Vent. Rate : 087 BPM Atrial Rate : 087 BPM P-R Int : 236 ms QRS Dur : 102 ms QT Int : 354 ms P-R-T Axes : 068 000 096 degrees QTc Int : 425 ms Sinus rhythm with 1st degree A-V block Nonspecific ST and T wave abnormality Abnormal ECG No previous ECGs available Confirmed by Luis Antonio Campos ([id number]) on 11/21/2019 5:22:44 AM Referred By: REFERRED SELF Confirmed By:Luis Antonio Campos
--- NOTE | 2019-11-21 05:27 | Electrocardiogram Report ---
Test Reason : Blood Pressure : / mmHG Vent. Rate : 082 BPM Atrial Rate : 082 BPM P-R Int : 222 ms QRS Dur : 098 ms QT Int : 362 ms P-R-T Axes : 068 001 111 degrees QTc Int : 422 ms Sinus rhythm with 1st degree A-V block Nonspecific ST and T wave abnormality Abnormal ECG When compared with ECG of 19-NOV-2019 20:05, No significant change was found Confirmed by Luis Antonio Campos ([id number]) on 11/21/2019 5:27:49 AM Referred By: REFERRED SELF Confirmed By:Luis Antonio Campos
--- NOTE | 2019-11-21 05:34 | Electrocardiogram Report ---
Test Reason : Blood Pressure : / mmHG Vent. Rate : 080 BPM Atrial Rate : 080 BPM P-R Int : 194 ms QRS Dur : 096 ms QT Int : 370 ms P-R-T Axes : 057 -16 104 degrees QTc Int : 426 ms Normal sinus rhythm T wave abnormality, consider anterior ischemia Abnormal ECG When compared with ECG of 20-NOV-2019 04:35, T wave inversion more evident in Anterior leads Confirmed by Luis Antonio Campos ([id number]) on 11/21/2019 5:33:43 AM Referred By: REFERRED SELF Confirmed By:Luis Antonio Campos
[2019-11-21] MEDS: LEVOTHYROXINE SODIUM 50 MCG TABLET PO SCH (06:01)
[2019-11-21 06:12] LABS: Estimated Average Glucose 194 mg/dl; Hemoglobin A1C 8.4 % (4.5-5.6)
[2019-11-21 06:29] LABS: Hematocrit (blood only) 32.1 % (42-52); Hemoglobin 10.6 g/dL (14.0-18.0); Mean Corpuscular Hemoglobin 30.8 pg (25-34); Mean Corpuscular Volume 93.3 fL (80-100); Mean Platelet Volume 11.3 fL (7.4-10.4); Platelet Count 161 K/uL (130-400); RDW Coefficient of Variation 12.9 % (11.5-14.5); Red Blood Count 3.44 M/uL (4.7-6.1); White Blood Count 8.36 K/uL (4.8-10.8)
[2019-11-21 06:56] LABS: Partial Thromboplastin Ratio 2.4
[2019-11-21 07:01] LABS: BUN Creatinine Ratio 16.1 (10-20); Calcium 8.3 mg/dl (8.5-10.1); Creatinine Clr Calc Pharmacy 32.8 ml/min; Est GFR (African American) 46.2; Est GFR (Non-African American) 39.9; Potassium 3.8 mmol/L (3.5-5.1)
[2019-11-21 07:14] LABS: Partial Thromboplastin Time 67.8 Seconds (21.0-31.0)
[2019-11-21 07:20] LABS: Creatine Kinase MB 6.4 ng/ml (0.5-3.6); Troponin I 3.98 ng/ml (0-0.045)
[2019-11-21] MEDS: CHOLECALCIFEROL 1,000 UNITS 25 MCG TAB PO SCH (08:27)
[2019-11-21] MEDS: carvediloL 3.125 MG TAB PO SCH ×2 (08:28→20:39)
[2019-11-21] MEDS: ASPIRIN 81 MG ECTAB PO SCH (08:28)
[2019-11-21] MEDS: INSULIN GLARGINE SOLOSTAR 100 UNITS/ML 3 ML PEN SC SCH ×2 (08:29→20:41)
[2019-11-21] MEDS: INSULIN ASPART 100 UNITS/ML 3 ML PEN SC SCH ×4 (08:30→20:42)
[2019-11-21 14:16] LABS: Partial Thromboplastin Ratio 1.9
[2019-11-21 14:22] LABS: Partial Thromboplastin Time 52.1 Seconds (21.0-31.0)
--- NOTE | 2019-11-21 20:22 | Hospitalist Progress Note ---
Date of Service November 21, 2019 Assessment & Plan (1) Fall: Suspect initially fall from tripping. No LOC. Second slide off bed more likely due to lack of sleep and possible concussion from first fall. Exacerbated by UTI No significant injuries apparent from fall. No groin/back pain on exam or when walking to suggest need for hip or back imaging. (2) UTI (urinary tract infection): Urine culture - GNR. Continue IV ceftriaxone pending full culture results. (3) Elevated troponin: Appreciate cardiology review. Not acute coronary syndrome however given EKG changes (although not dynamic) and significant underlying CAD - continue IV heparin for a total of 48 hours. Follow up with cardiology for consideration of outpatient myocardial perfusion study (4) Rhabdomyolysis: Discontinue IV fluids given mild crackles on exam and improvement in CK Trend CK daily (5) CAD (coronary artery disease): ASA, statin, BB. No ACEi/ARB likely secondary to BP. (6) S/P CABG (coronary artery bypass graft): as above. [facility] (7) Dyslipidemia: Continue simvastatin. Lipid panel in AM. 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 Pt reported baseline Cr 1.4 therefore does not meet criteria for JOSÉ. (11) DVT prophylaxis: Continue IV heparin drip as above, will discontinue in AM Admission and Anticipated Discharge Date Admission Date: November 19, 2019 Subjective Patient reports doing well. No acute concerns or questions.. No chest pain, orthopnea, PND, palpitations, shortness of breath. No fever, chills or urinary symptoms. Updated his daughter over the phone. All questions answered Review of Systems Review of Systems: All systems reviewed & are unremarkable except as noted in HPI & below Physical Exam Constitutional: WD/WN, vitals as above Eyes: + anicteric sclerae; normal pupil size ENMT: external ear and nose normal, oropharynx normal Respiratory: no respiratory distress Auscultation: + crackles (fine crackles bibasal); no diminished lung sounds, no rales and no wheezes Cardiovascular: RRR, no murmur, no edema Gastrointestinal (Abdomen): normal bowel sounds, soft, nontender, no hepatosplenomegaly Musculoskeletal: no cyanosis or clubbing, extremities motor strength 5/5 Skin: no rashes, warm and dry Neurologic: moves all extremities and awake; no focal motor deficits and not confused Speech / Cognition: normal speech Motor/Sensory: no sensory deficit Psychiatric: A+Ox3, euthymic affect Results & Data Results & Data ([facility]) Vital Signs (Past 12 Hours) Vital Signs Temp Pulse Pulse Resp BP Pulse Ox 11/21/19 19:12 66 11/21/19 19:00 36.7 C 70 20 145/67 H 97 11/21/19 15:28 37.0 C 68 18 149/77 H 96 11/21/19 15:09 96 11/21/19 11:23 36.8 C 74 18 144/64 H 96 PG Care Time/CCT Total # of Minutes Spent Total Time Spent with Patient: Total time spent is greater than 50% in coordination of care (as documented) at patient's floor/unit and/or counseling patient: Coding Level of Care Code 62301 Subseq Hosp Care Lvl 2 Diagnoses Fall W19.XXXA Encounter type: initial encounter UTI (urinary tract infection) N30.00 Hematuria presence: without hematuria Urinary tract infection type: acute cystitis Elevated troponin R79.89 Rhabdomyolysis M62.82 CAD (coronary artery disease) I25.10 S/P CABG (coronary artery bypass graft) Z95.1 Dyslipidemia E78.5 Diabetes mellitus E11.65; Z79.4 Diabetes mellitus complication status: with hyperglycemia Diabetes mellitus residential insulin use: with truck terminal manager use Diabetes mellitus type: type 2 Hx of right BKA Z89.511 Chronic kidney disease, stage 3 N18.3 DVT prophylaxis Z29.9 (1) UTI (urinary tract infection) Hematuria presence: without hematuria Urinary tract infection type: acute cystitis Qualified Code(s): N30.00 - Acute cystitis without hematuria (2) Diabetes mellitus Diabetes mellitus complication status: with hyperglycemia Diabetes mellitus truck terminal manager insulin use: with residential use Diabetes mellitus type: type 2 Qualified Code(s): E11.65 - Type 2 diabetes mellitus with hyperglycemia; Z79.4 - shelter (current) use of insulin (3) Fall Encounter type: initial encounter Qualified Code(s): W19.XXXA - Unspecified fall, initial encounter
[2019-11-21] MEDS: GABAPENTIN 300 MG CAP PO SCH (20:36)
[2019-11-21] MEDS: cefTRIAXone SODIUM 1,000 MG in DEXTROSE 5% 50 ML IV SCH (20:38)
[2019-11-21] MEDS: SIMVASTATIN 20 MG TAB PO SCH (20:39)
[2019-11-22] MEDS: LEVOTHYROXINE SODIUM 50 MCG TABLET PO SCH (05:40)
[2019-11-22 08:23] LABS: Chol HDL Ratio 4; Cholesterol 118 mg/dl (0-200); HDL Cholesterol 31 mg/dl; LDL Cholesterol Calculated 63 mg/dl; Triglycerides 122 mg/dl (0-150); VLDL Cholesterol 24 mg/dl
[2019-11-22 08:24] LABS: BUN Creatinine Ratio 16.5 (10-20); Calcium 8.8 mg/dl (8.5-10.1); Creatinine Clr Calc Pharmacy 41.3 ml/min; Est GFR (African American) 58.1; Est GFR (Non-African American) 50.1; Potassium 3.8 mmol/L (3.5-5.1)
[2019-11-22] MEDS: ASPIRIN 81 MG ECTAB PO SCH (09:07)
[2019-11-22] MEDS: carvediloL 3.125 MG TAB PO SCH (09:08)
[2019-11-22] MEDS: INSULIN ASPART 100 UNITS/ML 3 ML PEN SC SCH ×2 (09:09→12:55)
[2019-11-22] MEDS: INSULIN GLARGINE SOLOSTAR 100 UNITS/ML 3 ML PEN SC SCH (09:09)
[2019-11-22] MEDS: CHOLECALCIFEROL 1,000 UNITS 25 MCG TAB PO SCH (09:10)
--- NOTE | 2019-11-22 13:15 | Pharmacy Report ---
Pharmacy Glycemic Short Note 2 - Date of Service November 22, 2019 - Glycemic Short BSG Results (Last 24 hours): 11/21/19 11/21/19 11/22/19 16:27 20:24 07:07 Glucose 157 H POC Glucose 171 H 204 H 11/22/19 11/22/19 07:34 11:22 Glucose POC Glucose 146 H 205 H OUTPATIENT ANTIDIABETIC REGIMEN: * Lantus 45 units Qam, Novolog 5 units with breakfast/lunch, 22 units with dinner * A1c = pending INPATIENT GLYCEMIC REGIMEN AND RISK FACTORS FOR INSULIN RESISTANCE: - Assessment & Plan ASSESSMENT: * 84 year old male presenting with weakness after mechanical fall at home, concern for UTI. PMHx significant for DM, hypothyroidism, HLD, CAD, CABG * Pharmacy consulted for glycemic management - NPO on admission * BSGs elevated last evening >300 - given 10 units of SQ insulin - fasting BSG this AM 133 mg/dL * Due to NPO status this AM will give ~30% of basal dose for this AM / split to BID dosing as unclear if BSGs well controlled at home. A1C pending for tomorrow 11/21 * Patient received 64 units of insulin yesterday * Heparin drip has been discontinued * Basal requirements likely between 40-50 units per day so will continue with same scale * Postprandials elevated -> will tighten CF/CR PLAN FOR INPATIENT GLYCEMIC CONTROL: * Hold outpatient oral diabetes medications * Basal insulin * Lantus SQ BID per the following scale: * 15 units for BSG < 110 * 20 units for BSG 110-180 * 25 units for BSG > 180 * Bolus insulin - tighten goal range slightly, tighten CF/CR * NovoLog per scale ACHS or Q6hrs while NPO * Goal Range: Low 110 mg/dL - High 150 mg/dL * Correction Factor: 20 mg/dL/unit * Nutritional / Prandial insulin per carb ratio of 1 unit per 7 grams CHO consumed PLAN FOR DISCHARGE: * A1c 8.4% on 11/21/19 * Goal A1c for age/comorbidities ~8% * Recommend to continue outpatient regimen on discharge, along with close outpatient f/u for titration if necessary
--- NOTE | 2019-11-22 14:29 | Discharge Summary ---
Date of Service November 22, 2019 Admission HPI Per Admitting Provider 84 yo M with PMH DM w/neuropathy, Hypothyroidism, HLD, CAD with CABGx3 presents after mechanical fall at home. [facility] and is new to [facility], unclear of most of PMH. Pt notes that he went to bed and woke up around 10 pm last night to use the restroom; however, he had forgotten to keep the light on before going to sleep and as a result tripped over rug and fell on backside. Pt has had generalized weakness over past week, and could not gather strength to pull himself up to bed immediately. Pt laid on floor from 10pm-4AM. Eventually was able to wiggle his way up to bed very slowly. At 6AM, pt fell out of bed onto floor this time landing on stomach and pinned his arms. Pt laid on floor this time from 6AM to 430PM when his son found him. Pt denies and F/N/V/D, chills, CP, preceding palpitations, SOB, syncope or near syncope, preceding lightheadedness/dizziness, LOC, urinary sxs of dysuria or urgency, sick contacts or recent travel. Admits to increased urinary frequency, but notes it is because he is drinking a lot more water as directed by his physician. Pt with no other acute concerns or complaints. Pertinent Labs: WBC 16.34, Hgb 13.1, Na 131, Cr 1.99, Glu 358, Beta Hydroxybutyric Acid 3.64, AST 141, CK 9017, Trop 0.944 UA: 2+ Glu, 3+ blood, 2+LE, >30 WBC EKG: Sinus Rhythm with 1st degree AV Block Head CT: No acute intracranial findings C-spine CT: No evidence of acute fracture or traumatic subluxation. 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 with secondary spinal canal narrowing CXR: No active disease in the chest ER Course: NSS, Insulin 10 units, ASA 324mg, IV Rocephin 2g Surgical Hx: R BKA Admission Exam Per Admitting Provider Constitutional: WD/WN, vitals as above Eyes: PERRL, conjunctivae normal, anicteric sclerae ENMT: external ear and nose normal, oropharynx normal Head atraumatic Respiratory: normal respiratory effort, lungs clear to auscultation Cardiovascular: RRR, no murmur, no edema Gastrointestinal (Abdomen): normal bowel sounds, soft, nontender, no hepatosplenomegaly Musculoskeletal: R BKA Skin: no rashes, warm and dry Trauma: + abrasion (on arms) Psychiatric: A+Ox3, euthymic affect Principal Diagnosis Fall Rhabdomyolysis Urine tract infection Elevated troponin Discharge Exam Constitutional WD/WN, vitals as above Eyes PERRL, conjunctivae normal, anicteric sclerae + anicteric sclerae; normal pupil size ENMT external ear and nose normal, oropharynx normal Respiratory normal respiratory effort, lungs clear to auscultation no respiratory distress Auscultation: + crackles (fine crackles bibasal); no diminished lung sounds, no rales and no wheezes Cardiovascular RRR, no murmur, no edema Gastrointestinal (Abdomen) normal bowel sounds, soft, nontender, no hepatosplenomegaly Musculoskeletal no cyanosis or clubbing, extremities motor strength 5/5 Skin no rashes, warm and dry Trauma: + abrasion (on arms) Neurologic moves all extremities and awake; no focal motor deficits and not confused Speech / Cognition: normal speech Motor/Sensory: no sensory deficit Psychiatric A+Ox3, euthymic affect Discharge Data Allergies Allergy/AdvReac Type Severity Reaction Status Date / Time lisinopril Allergy Unknown Hyperkalemi Verified 11/19/19 22:09 a Consultations 11/19/19 22:32 ED Decision to Admit Stat 11/20/19 07:35 Consult Cardiology Routine 11/20/19 14:55 Consult Health Information Management Routine Ordered Studies 11/19/19 19:26 CT cervical spine wo con Stat IMPRESSION: 1. No evidence of acute fracture or traumatic subluxation 2. 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 No definite regional wall motion abnormalities. No significant left ventricular hypertrophy. Right ventricular systolic function may be mildly reduced, but right ventricle not well visualized No significant valvular abnormalities visualized Hospital Course (1) Fall: Gerhard Ortega is an 84 year old male admitted to [facility] from November 18 to 2019 due to a fall with a prolonged period on the floor. Fall was felt to be originally mechanical but also complicated by weakness from a UTI treated with intravenous antibiotics ceftriaxone and transitioned to cefdinir on discharge for total antibiotic course of 7 days. Urine culture grew Morganella morganii resistant to Unasyn and Imipenem only. No prostate problems were suspected from history but he is at increased risk with his diabetes and had glucosuria on admission. HbA1C 8.4, he reports this is coming down and he has the rare hypoglycemic episode therefore no changes to his insulin regimen were made. He was dehydrated on admission and had rhabdomyolysis (CK 9017) on admission which was treated with IV fluids without him developing any congestive heart failure despite his CAD history. Cr improved to 1.3 on discharge. In addition his troponin trended up on his first day of admission (troponin I maximum 11.4 ng/ml). ACS not suspected as he had no chest pain, shortness of breath or dynamic EKG changes. Diagnosed with type 2 NSTEMI, demand-ischemia. Given his cardiac history with prior CABG he was treated with IV heparin for 48 hours. Echocardiogram showed no regional wall motion abnormalities. He was advised to follow up with his [place] helper driver after discharge. On discharge he reported being back to his baseline self. (2) UTI (urinary tract infection): (3) Elevated troponin: (4) Rhabdomyolysis: (5) CAD (coronary artery disease): (6) S/P CABG (coronary artery bypass graft): (7) Dyslipidemia: (8) Diabetes mellitus: (9) Hx of right BKA: (10) Chronic kidney disease, stage 3: Total Time Total Time Spent Total Time Spent (In Minutes): 35 Total Time Includes: Examination of the Patient, Discharge Planning and Medication Reconciliation Discharge Plan Discharge Items Patient Disposition: Home - Home Health Services Reason For Visit: UTI,ELEVATED TROP Discharge Diagnosis: Fall Rhabdomyolysis Urine tract infection Elevated troponin Activity: Resume your previous activity Non-emergency contact: Maintenance Aide Call non-emergency contact if: you have any medication questions and your symptoms worsen Follow-up/Referrals: PCP,NO [Primary Care Provider] - Diet: Carb Consistent or DM2 and Heart Healthy Addtl Attending Provider Instructions: You were admitted to [facility] from November 18 to 2019 due to a fall with a prolonged period on the floor. You were diagnosed with a urine tract infection treated with intravenous antibiotics and can now safely transition to oral antibiotics as prescribed below to finish the course. The fall and prolonged period which you were on the floor caused breakdown of your muscles causing a condition known as rhabdomyolysis. You were treated for this with intravenous fluids to keep your kidneys hydrated as a complication of this can be renal failure, however your renal function improved as your dehydr ation was treated. This complication is unlikely to occur at this stage and you are medically stable for discharge. In addition you were noted to have a raised heart enzyme (troponin I maximum 11.4 ng/ml). This can go up with rhabdomyolysis but usually not to such a high degree. Therefore you were reviewed by cardiology given your significant. This was not a heart attack but suspect this represented demand-ischemia which is also sometimes referred to as a type 2 NSTEMI. No regional wall abnormalities consistent with a heart attack were noted on echocardiogram. Recommend you follow up with your [place] helper driver regarding this in the next month. Kind regards, Dr Nacho Wasserman Pending Studies at Discharge: No Stand-Alone Forms: My [facility] Payment Services, Smoking Cessation Medications and DC Order Prescriptions: New cefdinir 300 mg capsule 300 mg PO Q12H 4 Days Qty: 8 RF: 0 Continued metformin 500 mg Tablet 500 mg PO BID RF: 0 carvedilol 6.25 mg Tablet 3.125 mg PO BID RF: 0 Lantus U-100 Insulin 100 unit/mL Solution 45 unit SUBCUT QAM RF: 0 aspirin 81 mg Tablet,Delayed Release (Dr/Ec) 81 mg PO DAILY RF: 0 levothyroxine 50 mcg Tablet 50 mcg PO QAM RF: 0 simvastatin 20 mg Tablet 20 mg PO HS RF: 0 gabapentin 300 mg Capsule 300 mg PO HS RF: 0 cholecalciferol (vitamin D3) [Vitamin D3] 25 mcg (1,000 unit) Capsule 25 mcg PO DAILY RF: 0 insulin aspart U-100 [Novolog Flexpen U-100 Insulin] 100 unit/mL (3 mL) Insulin Pen See Rx Instructions .ROUTE .COMPLEX RF: 0 Discharge Orders: Discharge Order (Routine); Ordered 11/22/19 Ordered By: Nacho Ramos/Other Patient Handouts: Hyperglycemia, Hypoglycemia, Diabetes Type 2 Managing Admission Data Admit Date/Time: 11/19/19 23:50 Attending Provider: Nacho Wasserman Admit Provider: Vargas Guardado Primary Care Provider: PCP,NO Other Providers: Sheldon De Dios ; Luis Antonio Campos Other Interventions: Discharge Summary Assessment (RN) Last Done: 11/22/19 14:39 DC Date/Time DO NOT enter until pt leaves facility: 11/22/19 15:30 Coding Level of Care Code D/C Day Management >30 mins Diagnoses Fall W19.XXXA Encounter type: initial encounter UTI (urinary tract infection) N30.00 Hematuria presence: without hematuria Urinary tract infection type: acute cystitis Elevated troponin R79.89 Rhabdomyolysis M62.82 CAD (coronary artery disease) I25.10 S/P CABG (coronary artery bypass graft) Z95.1 Dyslipidemia E78.5 Diabetes mellitus E11.65; Z79.4 Diabetes mellitus complication status: with hyperglycemia Diabetes mellitus chcf insulin use: with chcf use Diabetes mellitus type: type 2 Hx of right BKA Z89.511 Chronic kidney disease, stage 3 N18.3
== END 2019-11-22 15:30 | disposition home health service (06) | DRG 558 ==
LOC: ED 18:53 → SUATTDRO 23:50 → 3E 23:50 → 2N 11-20 05:08

== ENCOUNTER 2023-04-22 14:38 | Inpatient (IN) ==
[2023-04-22 15:52] LABS: Basophils # (auto) 0.06 K/uL (0.00-0.20); Basophils % (auto) 0.7 %; Eosinophils # (auto) 0.27 K/uL (0.00-0.50); Eosinophils % (auto) 3.1 %; Hematocrit (blood only) 43.6 % (42.0-52.0); Hemoglobin 14.1 g/dl (14.0-18.0); Immature Granulocytes # (auto) 0.04 K/uL (0.01-0.20); Immature Granulocytes % (auto) 0.5 %; Lymphocytes # (auto) 1.38 K/uL (1.20-3.40); Lymphocytes % (auto) 15.9 %; Mean Corpuscular Hemoglobin 30.6 pg (25.0-34.0); Mean Corpuscular Hgb Conc 32.3 g/dL (32.0-36.0); Mean Corpuscular Volume 94.6 fL (80.0-100.0); Mean Platelet Volume 11.1 fL (9.4-12.4); Monocytes # (auto) 0.77 K/uL (0.11-0.59); Monocytes % (auto) 8.9 %; Neutrophils # (auto) 6.15 K/uL (1.40-6.50); Neutrophils % (auto) 70.9 %; Platelet Count 255 K/uL (130-400); RDW Coefficient of Variation 13.4 % (11.5-14.5); RDW Standard Deviation 46.8 fL (36.4-46.3); Red Blood Count 4.61 M/uL (4.70-6.10); White Blood Count 8.67 K/ul (4.8-10.8)
[2023-04-22 16:09] LABS: Alanine Aminotransferase 15 U/L (7-52); Albumin Globulin Ratio 1.2 (0.9-2); Albumin Level 4.3 gm/dl (3.4-5.0); Alkaline Phosphatase 110 U/L (34-104); Anion Gap 6 (3-11); Aspartate Aminotransferase 17 U/L (13-39); BUN Creatinine Ratio 12.6 (10-20); Bilirubin,Total 0.6 mg/dl (0.2-1.0); Blood Urea Nitrogen 21 mg/dl (6-23); Calcium 10.1 mg/dl (8.6-10.3); Carbon Dioxide 27 mmol/L (21-32); Chloride 102 mmol/L (98-107); Est GFR (Non-African American) 36.2 ml/min; Globulin 3.5 gm/dl (2.5-4.0); Glucose 159 mg/dl (70-99(Fasting)); Potassium 4.4 mmol/L (3.5-5.1); Sodium 135 mmol/L (136-145); Total Protein 7.8 gm/dl (6.0-8.3)
[2023-04-22] MEDS ORDERED: AMPICILLIN/SULBACTAM SOD 3,000 MG in SODIUM CHLOR 0.9% MINI-B 100 ML IV STA (20:31)
[2023-04-22 20:52] LABS: C Reactive Protein 6.59 mg/dl (0-0.5)
[2023-04-22] MEDS ORDERED: PIPERACILLIN/TAZOBACTAM 4.5 GM/100 ML BAG IV ONE (21:17)
[2023-04-22] MEDS ORDERED: DAPTOMYCIN IV SCH (21:30)
--- NOTE | 2023-04-22 21:54 | History & Physical Report ---
Date of Service April 22, 2023 Assessment & Plan (1) Pressure ulcer of left foot: Plan: 87 M with PMH of CAD s/p CABG, pacemaker implantation, CKD 3, T2DM, who presents with ulceration of left foot. Now admitted for intravenous antibiotic treatment, evaluation for osteomyelitis. Pressure ulcer of left foot -Afebrile, normal white count. Lactate normal. ESR severely elevated. CRP moderately elevated. -Radiology read of XR foot pending. -Likely due to dorsal surface compression from footwear liner. Ulcer is large and appears necrotic but unstageable. Second also developing proximally to large ulcer. Patient also has multiple risk factors for necrosis: T2DM, CAD, dyslipidemia. -Now s/p IV daptomycin, Zosyn in the ED. * Admit to MedSur telemetry. * Await radiology read of XR foot for definitive osteomyelitis r/o. * Continue IV daptomycin, Zosyn. * Await blood, wound culture results T2DM/acute hyperglycemia -Chronic, with peripheral neuropathy on gabapentin. -Managed on metformin 500 mg twice daily, basal bolus regimen: Lantus 45 units SQ every morning, NovoLog 32 units total daily (5 units at breakfast, 5 units at lunch, 22 units with evening meal). -BSG 159 on admission. * Continue insulin on adjusted regimen: 30 units Lantus every morning, SSI NovoLog at mealtime (CF = 20; CR = 10; goal range 100-140). ACHS BSG checks. * Continue holding metformin until discharge * Continue home gabapentin CAD -Chronic. S/p CABG, pacemaker implantation. Managed on aspirin, carvedilol, simvastatin. * Continue home aspirin 81 mg daily, carvedilol 3.125 mg twice daily * Due to interaction with daptomycin. CKD3 -Creatinine 1.67, around baseline. GFR 36.2 (stage IIIb). * Trend BMP. Hypothyroidism -Chronic. Managed on levothyroxine 50 mcg every morning. * Continue home levothyroxine Code: DNR/DNI Dispo: Med-Surg telemetry FEN/GI: Heart healthy/carb consistent DVT Prophylaxis: Heparin 5000 u q12h PT/OT: Yes Consults: Wound care nursing Case Management: No (2) Diabetes mellitus: (3) Acute hyperglycemia: (4) CAD (coronary artery disease): (5) Chronic kidney disease, stage 3: History of Present Illness Primary Care Provider: [facility] Ziyad is an 87-year-old man with a history of CKD 3, coronary artery disease s/p CABG, pacemaker, T2DM, and right BKA, who presented to the emergency room with a complaint of worsening ulceration and discoloration of left great toe since Tuesday. Patient wears a shoe liner in his left foot for support. He reports walking more than usual on his walker in his home, after which she noticed the initial ulceration. This morning, his son noticed that the ulcer had turned black and urged him to come to the emergency room for further evaluation. He denies fever, chills, purulent discharge, or swelling of the foot. In the ED, vitals are within normal limits. Notable labs include: ESR 83/CRP 6.59, BSG 159, Cr 1.67, alk phos 110. WBC was normal at 8.67. Lactate was normal at 1.6. XR toe pending radiology read at time of admission. He received IV Zosyn and daptomycin, and hospitalist service was consulted for admission. Allergies Allergy/AdvReac Type Severity Reaction Status Date / Time lisinopril Allergy Unknown Hyperkalemi Verified 11/19/19 22:09 a Home Medications Medication Instructions Recorded Confirmed Type aspirin 81 mg tablet,delayed 81 mg PO DAILY 11/19/19 11/19/19 History release carvedilol 6.25 mg tablet 3.125 mg PO BID 11/19/19 11/19/19 History cholecalciferol (vitamin D3) 25 25 mcg PO DAILY 11/19/19 11/19/19 History mcg (1,000 unit) capsule (Vitamin D3) gabapentin 300 mg capsule 300 mg PO HS 11/19/19 11/19/19 History insulin aspart U-100 100 unit/mL See Rx Instructions .Route .COMPLEX 11/19/19 11/19/19 History (3 mL) subcutaneous pen (Novolog FlexPen U-100 Insulin aspart) insulin glargine 100 unit/mL 45 unit subcut QAM 11/19/19 11/19/19 History subcutaneous solution (Lantus U-100 Insulin) levothyroxine 50 mcg tablet 50 mcg PO QAM 11/19/19 11/19/19 History metformin 500 mg tablet 500 mg PO BID 11/19/19 11/19/19 History simvastatin 20 mg tablet 20 mg PO 11/19/19 11/19/19 History Past Med/Surg History Medical History (Updated 04/23/23 @ 14:34 by Crissy Duncan MD) CAD (coronary artery disease) Diabetes mellitus Diabetic neuropathy Dyslipidemia Hypothyroidism Surgical History Hx of right BKA S/P CABG (coronary artery bypass graft) S/P placement of cardiac pacemaker Social History Smoking Status: Never smoker Second Hand Exposure: No; Do You Dip or Chew Tobacco: Yes; Hx Alcohol Use: No Hx Substance Use: No Preferred Language: Cameroonian Communication Ability: Effective Biztalk Developer Required: No Beliefs That Will Affect Care: None Current Living Situation: Alone Current Living Situation Comment: Lives home alone, has business management associate/surgeon's assistant Feels Safe at Home: Yes Safety Concerns: Feels Safe At This Time Assistive Devices: Cane and Glasses Review of Systems Review of Systems: All systems reviewed & are unremarkable except as noted in HPI & below Physical Exam Physical Exam: General: No acute distress HEENT: PERRLA. Normal conjunctiva, anicteric sclera. Oropharynx normal. Respiratory: Normal respiratory effort Cardiovascular: RRR without murmurs, gallops, or rubs. No pedal edema. Foot (left): Large 5 cm long x 1.5 cm wide unstageable ulcer with central necrosis of great toe along medial edge. Second, smaller stage II ulcer 2 cm long x1.5 cm wide with central granulation tissue. No purulence or surrounding fluctuance observed. 1+ DP pulse. Neuro: Alert and oriented x3. Results & Data Results & Data Vital Signs (Past 12 Hours) Vital Signs Temp Pulse Pulse Resp BP BP Pulse Ox 04/22/23 20:00 74 16 148/76 H 96 04/22/23 15:02 36.7 C 73 20 121/57 L 95 O2 Del Method 04/22/23 20:00 Room Air 04/22/23 15:02 Room Air Supervising Physician Co-Signing Physician Notes Attending addendum: I have physically seen this patient, have supervised the medical residents activities, and agree with the H&P unless as otherwise noted. Assessment and Plan: Diabetic left foot ulcer/cellulitis- Daptomycin IV and Zosyn IV Follow wound culture sensitivity Follow blood culture and sensitivity X-ray pending To determine if patient needs CT/MRI/bone scan to further characterize for possible osteo- Diabetes mellitus continue alert glargine and SSI NovoLog as noted Check hemoglobin A1c Hold metformin while in hospital Continue gabapentin CAD/hypertension/history of CABG/pacemaker implantation- Continue carvedilol and aspirin Remaining orders and notations as noted Resident Activity Tracking Resident Involvement: Resident Care Provided Care Provided: Adult Hospital Medicine (2) Diabetes mellitus Diabetes mellitus complication status: with hyperglycemia Diabetes mellitus salvage determiner insulin use: with mcc use Diabetes mellitus type: type 2 Qualified Code(s): E11.65 - Type 2 diabetes mellitus with hyperglycemia; Z79.4 - senior care (current) use of insulin
--- NOTE | 2023-04-22 21:57 | Emergency Department Note ---
Impression & Plan Cellulitis, Diabetes mellitus, Hx of right BKA, Diabetic foot ulcer ED Provider Note CHIEF COMPLAINT: Left toe wound, rash HISTORY OF PRESENT ILLNESS: This 87-year-old male patient past medical history of diabetes, chronic renal insufficiency, pacemaker placement, dyslipidemia, CABG and previous history of a right BKA presents to the emergency department after noticing an ulceration on his left great toe several days ago. Patient states he put inserts into his shoes. [facility] but he added another insert and he feels this rubbed his toe. The patient does not have full sensation in his foot and did not realize that it was rubbing on the skin. He showed his family tonight who realized that the area had likely become infected and was tracking up his foot. Patient denies any fevers, chills or pain in the lower extremity. He is concerned because of his previous BKA on the right. He does not want to lose his toe or foot. Patient primarily follows with the [facility] in [place]. REVIEW OF SYSTEMS: A review of systems was performed with positives and pertinent negatives listed in the history of present illness. 10 systems were reviewed and are otherwise negative. ALLERGIES: see below MEDICATIONS: see below PMH: see below SOCIAL HISTORY: see below DDx: Osteomyelitis, cellulitis, trauma, DVT, diabetic foot ulcer among others. PHYSICAL EXAM: Vital signs reviewed. General: Generally well-appearing elderly 87-year-old male, in no significant distress. HEENT: No scleral icterus, PERRLA, neck supple. Atraumatic. Cardiovascular: Distant heart tones, regular Pulmonary: Clear to auscultation bilaterally, normal work of breathing. Abdomen: Soft, nontender, nondistended, positive bowel sounds. Musculoskeletal: Atraumatic, no peripheral edema. Left great toe with a 3 cm ulceration with eschar. There is no drainage but there is surrounding erythema tracking up the medial aspect of the foot. There is a separate forefoot ulceration approximately 4 cm does not appear to be infected. There is additional erythema tracking up to the mid calf. Warm to touch. No drainage. Neurologic: Patient awake alert and oriented x 3, speech is clear Skin: Warm, dry, no rash EMERGENCY DEPARTMENT COURSE/MDM: This patient was evaluated and appeared to be in no significant distress. IV access was obtained and laboratory work was drawn. Patient was noted to have a normal WBC and was afebrile. CRP and sedimentation rate were added to the laboratory work ordered from triage. Both numbers are significantly elevated. X-ray of the left great toe to my interpretation reveals no clear evidence of osteomyelitis. The patient was medicated with IV Zosyn and daptomycin. After some consideration, is felt to be in the patient's best interest to be evaluated by the hospitalist service for admission and further management. Patient and his family felt comfortable with this plan and agreed. MONITORING: An order for cardiac monitoring was placed and the patient is noted to be in a normal sinus rhythm at 74 beats per minute. RADIOLOGY: Left great toe x-ray to my interpretation reveals degenerative change without clear evidence of acute osteomyelitis. Defer to radiology's over read. DISPOSITION: Admission Past Med/Surg History Medical History CAD (coronary artery disease) Diabetes mellitus Diabetic neuropathy Dyslipidemia Hypothyroidism Surgical History Hx of right BKA S/P CABG (coronary artery bypass graft) S/P placement of cardiac pacemaker Social History Smoking Status: Former smoker Second Hand Exposure: No; Do You Dip or Chew Tobacco: Yes; Hx Alcohol Use: Yes Hx Substance Use: No Preferred Language: Ghanaian Communication Ability: Effective Beliefs That Will Affect Care: None Current Living Situation: Alone Feels Safe at Home: Yes Assistive Devices: Prosthesis and Walker Allergies Allergies Allergy/AdvReac Type Severity Reaction Status Date / Time lisinopril Allergy Unknown Hyperkalemi Verified 11/19/19 22:09 a Home Meds Home Medications Medication Instructions Recorded Confirmed aspirin 81 mg tablet,delayed 81 mg PO DAILY 11/19/19 11/19/19 release carvedilol 6.25 mg tablet 3.125 mg PO BID 11/19/19 11/19/19 cholecalciferol (vitamin D3) 25 25 mcg PO DAILY 11/19/19 11/19/19 mcg (1,000 unit) capsule (Vitamin D3) gabapentin 300 mg capsule 300 mg PO HS 11/19/19 11/19/19 insulin aspart U-100 100 unit/mL See Rx Instructions .Route .COMPLEX 11/19/19 11/19/19 (3 mL) subcutaneous pen (Novolog FlexPen U-100 Insulin aspart) insulin glargine 100 unit/mL 45 unit subcut QAM 11/19/19 11/19/19 subcutaneous solution (Lantus U-100 Insulin) levothyroxine 50 mcg tablet 50 mcg PO QAM 11/19/19 11/19/19 metformin 500 mg tablet 500 mg PO BID 11/19/19 11/19/19 simvastatin 20 mg tablet 20 mg PO HS 11/19/19 11/19/19 Results & Data (ED) Vital Signs Vital Signs - 24 hr 04/22/23 15:02 04/22/23 20:00 Temperature 36.7 C Temperature Source Temporal Artery Scan Pulse Rate 73 Pulse Rate [Finger] 74 Respiratory Rate 20 16 Respiratory Effort / Characteristics Non-Labored Non-Labored Spontaneous Respiratory Depth Normal Normal Blood Pressure 121/57 L Blood Pressure [Right Arm] 148/76 H Blood Pressure Mean 78 Blood Pressure Mean [Right Arm] 100 Blood Pressure Position Sitting Pulse Oximetry 95 96 Oxygen Delivery Method Room Air Room Air Sepsis Recent Fever Within 48 Hours No Sepsis New/Unexplained Change in Mental Status No Sepsis Action Taken by Nursing No Action Required Home Medications Current Medication List: was personally reviewed by me Laboratory Data Attestation: I reviewed the patient's lab results. 04/22/23 15:24 04/22/23 15:24 Lab Results 04/22/23 04/22/23 04/22/23 Range/Units 15:24 15:24 15:24 WBC 8.67 (4.8-10.8) K/ul RBC 4.61 L (4.70-6.10) M/uL Hgb 14.1 (14.0-18.0) g/dl Hct 43.6 (42.0-52.0) % MCV 94.6 (80.0-100.0) fL MCH 30.6 (25.0-34.0) pg MCHC 32.3 (32.0-36.0) g/dL RDW Std Deviation 46.8 H (36.4-46.3) fL RDW Coeff of [place] 13.4 (11.5-14.5) % Plt Count 255 (130-400) K/uL MPV 11.1 (9.4-12.4) fL Immature Gran % (Auto) 0.5 % Neut % (Auto) 70.9 % Lymph % (Auto) 15.9 % [place] % (Auto) 8.9 % Eos % (Auto) 3.1 % Baso % (Auto) 0.7 % Neut # (Auto) 6.15 (1.40-6.50) K/uL Lymph # (Auto) 1.38 (1.20-3.40) K/uL [place] # (Auto) 0.77 H (0.11-0.59) K/uL Eos # (Auto) 0.27 (0.00-0.50) K/uL Baso # (Auto) 0.06 (0.00-0.20) K/uL Immature Gran # (Auto) 0.04 (0.01-0.20) K/uL ESR (0-20) mm/hr Sodium 135 L (136-145) mmol/L Potassium 4.4 (3.5-5.1) mmol/L Chloride 102 (98-107) mmol/L Carbon Dioxide 27 (21-32) mmol/L Anion Gap 6 (3-11) BUN 21 (6-23) mg/dl Creatinine 1.67 H (0.6-1.4) mg/dl Est Cr Clr Drug Dosing Not Reportable Est GFR ( Amer) 42.0 ml/min Est GFR (Non-Af Amer) 36.2 ml/min BUN/Creatinine Ratio 12.6 (10-20) Glucose 159 H (70-99(Fasting)) mg/dl Lactate 1.6 (0.4-2.0) mmol/L Calcium 10.1 (8.6-10.3) mg/dl Total Bilirubin 0.6 (0.2-1.0) mg/dl AST 17 (13-39) U/L ALT 15 (7-52) U/L Alkaline Phosphatase 110 H (34-104) U/L C-Reactive Protein 6.59 H (0-0.5) mg/dl Total Protein 7.8 (6.0-8.3) gm/dl Albumin 4.3 (3.4-5.0) gm/dl Globulin 3.5 (2.5-4.0) gm/dl Albumin/Globulin Ratio 1.2 (0.9-2) 04/22/23 Range/Units 15:24 WBC (4.8-10.8) K/ul RBC (4.70-6.10) M/uL Hgb (14.0-18.0) g/dl Hct (42.0-52.0) % MCV (80.0-100.0) fL MCH (25.0-34.0) pg MCHC (32.0-36.0) g/dL RDW Std Deviation (36.4-46.3) fL RDW Coeff of [place] (11.5-14.5) % Plt Count (130-400) K/uL MPV (9.4-12.4) fL Immature Gran % (Auto) % Neut % (Auto) % Lymph % (Auto) % [place] % (Auto) % Eos % (Auto) % Baso % (Auto) % Neut # (Auto) (1.40-6.50) K/uL Lymph # (Auto) (1.20-3.40) K/uL [place] # (Auto) (0.11-0.59) K/uL Eos # (Auto) (0.00-0.50) K/uL Baso # (Auto) (0.00-0.20) K/uL Immature Gran # (Auto) (0.01-0.20) K/uL ESR 83 H (0-20) mm/hr Sodium (136-145) mmol/L Potassium (3.5-5.1) mmol/L Chloride (98-107) mmol/L Carbon Dioxide (21-32) mmol/L Anion Gap (3-11) BUN (6-23) mg/dl Creatinine (0.6-1.4) mg/dl Est Cr Clr Drug Dosing Est GFR ( Amer) ml/min Est GFR (Non-Af Amer) ml/min BUN/Creatinine Ratio (10-20) Glucose (70-99(Fasting)) mg/dl Lactate (0.4-2.0) mmol/L Calcium (8.6-10.3) mg/dl Total Bilirubin (0.2-1.0) mg/dl AST (13-39) U/L ALT (7-52) U/L Alkaline Phosphatase (34-104) U/L C-Reactive Protein (0-0.5) mg/dl Total Protein (6.0-8.3) gm/dl Albumin (3.4-5.0) gm/dl Globulin (2.5-4.0) gm/dl Albumin/Globulin Ratio (0.9-2) Administered Medications Daptomycin 340 mg/ Syringe 6.8 mls @ 3.4 mls/min IV Q24H [facility]; Protocol Stop: 04/29/23 21:29 Last Admin: 04/22/23 21:44 Dose: 3.4 mls/min Documented By: KATHY Discontinued Medications Ampicillin Sodium/Sulbactam Sodium 3,000 mg/ Sodium Chloride 100 mls @ 200 mls/hr IV NOW STA Stop: 04/22/23 21:00 Last Admin: 04/22/23 21:24 Dose: Not Given Documented By: INA Piperacillin Sod/Tazobactam Sod (Zosyn) 4.5 gm in 100 mls @ 200 mls/hr IV NOW ONE Stop: 04/22/23 21:46 Last Admin: 04/22/23 21:44 Dose: 200 mls/hr Documented By: KATHY Discharge Plan Visit Data Chief Complaint: Skin Problem Stated Complaint: SORE ON BIG TOE, ED Provider: Coleen Escobar Discharge Problem: Cellulitis, Diabetes mellitus, Hx of right BKA, Diabetic foot ulcer Forms Stand Alone Forms: My [facility] Prescriptions Prescriptions: No Action metformin 500 mg Tablet 500 mg PO BID carvedilol 6.25 mg Tablet 3.125 mg PO BID Rx Instructions: TAKE HALF A TABLET TWICE DAILY Lantus U-100 Insulin 100 unit/mL Solution 45 unit SUBCUT QAM aspirin 81 mg Tablet,Delayed Release (Dr/Ec) 81 mg PO DAILY levothyroxine 50 mcg Tablet 50 mcg PO QAM simvastatin 20 mg Tablet 20 mg PO HS gabapentin 300 mg Capsule 300 mg PO HS cholecalciferol (vitamin D3) [Vitamin D3] 25 mcg (1,000 unit) Capsule 25 mcg PO DAILY insulin aspart U-100 [Novolog FlexPen U-100 Insulin] 100 unit/mL (3 mL) Insulin Pen See Rx Instructions .ROUTE .COMPLEX Rx Instructions: ADMINISTER 5 UNITS WITH BREAKFAST, 5 UNITS WITH LUNCH AND 22 UNITS WITH EVENING MEAL Referrals Referrals: Jaida Quiros DO, FACEP [Physician] - (A referral will be made to: [facility] [address], [address] [place] [address] [facility] will call you directly to schedule your follow-up appointment. If you do not hear from [facility] or if you have any questions, please feel free to contact [facility] Case Management at [phone].) [facility] [Primary Care Provider] -
[2023-04-22] MEDS ORDERED: Patient's HEIGHT &/or WEIGHT Needed STA (23:39)
[2023-04-22] MEDS ORDERED: GLUCOSE 40% GEL 15 GM TUBE PO PRN (23:40)
[2023-04-22] MEDS ORDERED: GLUCOSE 10 TAB/TUBE PO PRN (23:40)
[2023-04-22] MEDS ORDERED: DEXTROSE 50% 50 ML SYRINGE IV PRN (23:40)
[2023-04-22] MEDS ORDERED: GLUCAGON FOR INJ 1 MG VIAL SQ PRN (23:40)
[2023-04-22] MEDS ORDERED: CARBOHYDRATES FOR HYPOGLYCEMIA PO PRN (23:40)
[2023-04-23] MEDS ORDERED: GABAPENTIN 300 MG CAP PO ONE (00:20)
[2023-04-23] MEDS: LEVOTHYROXINE SODIUM 50 MCG TABLET PO SCH (05:40)
--- NOTE | 2023-04-23 07:30 | Hospitalist Progress Note ---
Date of Service April 23, 2023 Assessment & Plan (1) Skin ulcer of left great toe: Plan: -Notably hx of R BKA -Afebrile, normal white count. Lactate normal. ESR severely elevated. CRP moderately elevated. -Radiology read of XR toe without evidence of osteo -Now s/p IV daptomycin, Zosyn in the ED -Continue with daptomycin & Unasyn -04/22 BCx and wound Cx pending -Patient unable to have MRI foot due to pacemaker not compatible, will obtain CT foot -Obtain NADINE study as well -Ortho consulted (2) Diabetes mellitus: Plan: -Chronic, with peripheral neuropathy on gabapentin. -Managed on metformin 500 mg twice daily, basal bolus regimen: Lantus 45 units SQ every morning, NovoLog 32 units total daily (5 units at breakfast, 5 units at lunch, 22 units with evening meal). -Continue insulin on adjusted regimen: 30 units Lantus every morning, SSI NovoLog at mealtime (CF = 20; CR = 10; goal range 100-140). ACHS BSG checks. -Continue holding metformin -Continue home gabapentin (3) CAD (coronary artery disease): Plan: -Chronic. S/p CABG, pacemaker implantation. Managed on aspirin, carvedilol, simvastatin. -Continue home aspirin 81 mg daily, carvedilol 3.125 mg twice daily -Due to interaction with daptomycin, hold simvastatin (4) Chronic kidney disease, stage 3: Plan: -At baseline, (stage IIIb). -Trend BMP (5) Hypothyroidism: Plan: -Continue home levothyroxine 50 mcg every morning. Plan Code: DNR/DNI Dispo: Med-Surg telemetry FEN/GI: Heart healthy/carb consistent DVT Prophylaxis: Heparin 5000 u q12h PT/OT: Yes Consults: Wound care nursing Case Management: No Admission and Anticipated Discharge Date Admission Date: April 22, 2023 Subjective Denies any pain in his left foot but does report numbness that is chronic. Notes his BKA on his right is related to having had a similar type of ulcer formation on his right foot. Denies any lightheadedness, chest pain, shortness of breath, fevers or chills. Review of Systems Review of Systems: Per subjective Physical Exam Physical Exam: General: Well-appearing, NAD, sitting upright in bedside chair Cardiovascular: RRR, no M/R/G, though distant heart sounds Pulmonary: CTAB anteriorly Extremities: R BKA noted. L great toe medial edge with ~5cmx1.5cm necrotic ulcer along medial edge with surrounding erythema and erythema streaking up proximally along dorsal foot. Second smaller ulcer with central granulation tissue along medial dorsal midfoot. Absent sensation to light touch distal great toe Neurologic: AAOx3, no focal deficits Psychiatric: Appropriate mood/affect Results & Data Results & Data Vital Signs (Past 12 Hours) Vital Signs Temp Pulse Pulse Resp BP BP Pulse Ox 04/23/23 06:00 73 04/23/23 02:57 36.9 C 73 18 116/62 94 04/23/23 01:30 78 04/22/23 21:26 36.6 C 73 18 149/73 H 96 04/22/23 23:38 36.6 C 73 18 149/73 H 96 04/22/23 23:22 79 16 138/88 96 04/22/23 20:00 74 16 148/76 H 96 O2 Del Method 04/23/23 06:00 04/23/23 02:57 Room Air 04/23/23 01:30 04/22/23 21:26 Room Air 04/22/23 23:38 Room Air 04/22/23 23:22 Room Air 04/22/23 20:00 Room Air PG Care Time/CCT Total # of Minutes Spent Total Time Spent with Patient: Total time spent is greater than 50% in coordination of care (as documented) at patient's floor/unit and/or counseling patient: Coding Level of Care Code 99746 SUB INP/OBS CARE 2/35MIN Diagnoses Skin ulcer of left great toe L97.529 Diabetes mellitus E11.65; Z79.4 Diabetes mellitus complication status: with hyperglycemia Diabetes mellitus terminal computer operator insulin use: with fdc use Diabetes mellitus type: type 2 CAD (coronary artery disease) I25.10 Chronic kidney disease, stage 3 N18.3 Hypothyroidism E03.9 (2) Diabetes mellitus Diabetes mellitus complication status: with hyperglycemia Diabetes mellitus fdc insulin use: with fdc use Diabetes mellitus type: type 2 Qualified Code(s): E11.65 - Type 2 diabetes mellitus with hyperglycemia; Z79.4 - intermediate card tender (current) use of insulin
[2023-04-23 07:38] LABS: BUN Creatinine Ratio 14.9 (10-20); Calcium 9.5 mg/dl (8.6-10.3); Creatinine Clr Calc Pharmacy 30.2 ml/min; Est GFR (African American) 43.9 ml/min; Est GFR (Non-African American) 37.9 ml/min; Phosphorus 3.5 mg/dl (2.5-4.9); Potassium 4.1 mmol/L (3.5-5.1)
[2023-04-23 07:41] LABS: Hematocrit (blood only) 37.2 % (42.0-52.0); Hemoglobin 12.4 g/dl (14.0-18.0); Mean Corpuscular Hemoglobin 31.2 pg (25.0-34.0); Mean Corpuscular Hgb Conc 33.3 g/dL (32.0-36.0); Mean Corpuscular Volume 93.5 fL (80.0-100.0); Mean Platelet Volume 11.8 fL (9.4-12.4); Platelet Count 219 K/uL (130-400); RDW Coefficient of Variation 13.3 % (11.5-14.5); Red Blood Count 3.98 M/uL (4.70-6.10); White Blood Count 7.48 K/ul (4.8-10.8)
[2023-04-23] MEDS: ASPIRIN 81 MG ECTAB PO SCH (09:14)
[2023-04-23] MEDS: CHOLECALCIFEROL 1,000 UNITS 25 MCG TAB PO SCH (09:15)
[2023-04-23] MEDS: carvediloL 3.125 MG TAB PO SCH ×2 (09:15→21:22)
[2023-04-23] MEDS: HEPARIN SOD 5,000 UNIT/0.5 ML VIAL SQ SCH ×2 (09:18→21:23)
[2023-04-23] MEDS: INSULIN ASPART PER UNIT CHARGE SC SCH ×4 (09:25→21:24)
[2023-04-23] MEDS: LANTUS PER UNIT CHARGE SQ SCH (09:25)
--- NOTE | 2023-04-23 10:32 | XRay Report ---
XR toe(s) LT min 2V CLINICAL HISTORY: L toe ulcer TECHNIQUE: 3 views of the left first digit were obtained. Comparison: None available at the time of this dictation. FINDINGS: There is no evidence of erosive change to suggest osteomyelitis. Degenerative changes are seen in the joints. Soft tissue swelling is seen about the digit. IMPRESSION: Soft tissue swelling without underlying erosive change to suggest osteomyelitis. ACT 112: Negative or not required by law. Electronically signed by: Amol Marinelli M.D. 04/23/2023 10:29 AM
[2023-04-23 11:13] LABS: Estimated Average Glucose 189 mg/dl; Hemoglobin A1C 8.2 % (4.5-5.6)
[2023-04-23] MEDS: AMPICILLIN/SULBACTAM SOD 3,000 MG in SODIUM CHLOR 0.9% MINI-B 100 ML IV SCH ×2 (16:02→21:22)
--- NOTE | 2023-04-23 18:38 | CT Scan Report ---
CT foot LT wo con CLINICAL HISTORY: necrotic great toe ulcer, ?osteo, unable to get MR TECHNIQUE: Multidetector row helical CT of the left foot was performed without intravenous contrast. Coronal and sagittal reformations were obtained. Automated dose lowering techniques and/or adjustment according to patient size were utilized for this examination. CT DOSE: 307.78 mGy.cm Comparison: Comparison is made to left toe radiograph 04/22/2023 FINDINGS: No fractures or focal erosions. Degenerative changes are seen in the joints. An os navicularis is inc identally noted. Surgical clip is noted in the lateral midfoot. Soft tissue swelling is seen. Vascula r calcifications are noted. IMPRESSION: No focal erosions are seen to suggest osteomyelitis. ACT 112: Negative or not required by law. Electronically signed by: Amol Marinelli M.D. 04/23/2023 6:36 PM
[2023-04-23] MEDS: GABAPENTIN 300 MG CAP PO SCH (19:04)
--- NOTE | 2023-04-23 20:33 | Billing Data ---
Date of Service April 23, 2023 Coding Level of Care Code 92310 INT INP/OBS CARE
--- NOTE | 2023-04-23 20:40 | Ultrasound Report ---
US ankle/brachial index ltd CLINICAL HISTORY: L necrotic toe ulcer, hx R BKA TECHNIQUE: Real-time grayscale and color and spectral Doppler ultrasound imaging of the left lower ex tremity arteries was performed. Measurements calculated based on NASCET criteria. COMPARISON: Comparison is made to CT foot 04/23/2023 FINDINGS: ANKLE/BRACHIAL INDEX (NADINE): Brachial: Left: 142 mmHg. Ankle (dorsalis pedis): . Left: 150 mmHg. Ankle (posterior tibial): Left: 69 mmHg. Ankle/brachial index: Left: 1.06. Reference ranges: Normal Ankle/Brachial Index (NADINE) 1.0-1.4; 0.91-0.99 borderline; < or = 0.9 abnormal (0.7-0.89 mild, 0.51-0.69 moderate, < or = 0.5 severe peripheral arterial disease). Normal Toe/Brachial Index (TBI) > or = 0.6; < 0.6 abnormal (0.34-0.59 mild, 0.12-0.34 moderate, < or = 0.11 severe peripheral arterial disease). IMPRESSION: 1. Normal left ankle brachial index. ACT 112: Negative or not required by law. Electronically signed by: Amol Marinelli M.D. 04/23/2023 8:39 PM
[2023-04-23] MEDS ORDERED: GABAPENTIN 300 MG CAP PO SCH (21:00)
[2023-04-23] MEDS: DAPTOmycin 250 MG in SYRINGE 0 ML IV SCH (21:26)
[2023-04-23] MEDS: ACETAMINOPHEN 325 MG TAB PO PRN (23:52)
[2023-04-24] MEDS: AMPICILLIN/SULBACTAM SOD 3,000 MG in SODIUM CHLOR 0.9% MINI-B 100 ML IV SCH ×4 (02:15→21:19)
[2023-04-24] MEDS: LEVOTHYROXINE SODIUM 50 MCG TABLET PO SCH (05:45)
[2023-04-24 07:03] LABS: Hematocrit (blood only) 34.5 % (42.0-52.0); Hemoglobin 11.6 g/dl (14.0-18.0); Mean Corpuscular Hemoglobin 31.4 pg (25.0-34.0); Mean Corpuscular Hgb Conc 33.6 g/dL (32.0-36.0); Mean Corpuscular Volume 93.2 fL (80.0-100.0); Mean Platelet Volume 11.1 fL (9.4-12.4); Platelet Count 201 K/uL (130-400); RDW Coefficient of Variation 13.2 % (11.5-14.5); RDW Standard Deviation 45.2 fL (36.4-46.3); White Blood Count 5.68 K/ul (4.8-10.8)
[2023-04-24 07:29] LABS: BUN Creatinine Ratio 18.3 (10-20); Calcium 9.2 mg/dl (8.6-10.3); Creatinine Clr Calc Pharmacy 31.4 ml/min; Est GFR (African American) 46.7 ml/min; Est GFR (Non-African American) 40.3 ml/min; Potassium 3.9 mmol/L (3.5-5.1)
--- NOTE | 2023-04-24 08:19 | Orthopedic Consultation ---
Date of Consultation April 24, 2023 Assessment & Plan (1) Skin ulcer of left great toe: 87 year old male with history of CAD s/p CABG, pacemaker implantation, CKD 3, DM2, s/p right BKA who presents with ulceration of left great toe and dorsal foot which he developed likely from pressure wound after placing a new insert in his shoe, initially noticed about 5 days ago. The ulcer to his great toe has turned necrotic and he does have lymphangitic streaking despite current IV daptomycin and Unasyn. Imaging including foot x-ray and CT negative for findings consistent with osteomyelitis and NADINE normal. On review of labs, WBC and lactate WNL, inflammatory markers ESR and CRP elevated. Given development of necrosis about the ulcer on his great toe and lymphangitic streaking, he would likely benefit from surgical debridement vs. other intervention. Patient does have history of right BKA due to similar appearing wound in the past. Recommend continuing IV abx per primary in the meantime. Will discuss with provider cotton classer regarding final plan. History of Present Illness Reason for Consultation: Left foot ulceration Attending Physician: Crissy Duncan MD History of Present Illness Mr. Ortega is an 87 year old male with history of CAD s/p CABG, pacemaker implantation, CKD 3, DM2, s/p right BKA who presents with ulceration of left foot requiring admission for IV antibiotic treatment. Orthopedics was consulted for additional evaluation. Labs were significant for elevated ESR and CRP, however WBC and lactate normal. He was given IV Daptomycin and Zosyn in the ED, now continued on Daptomycin and Unasyn as an inpatient. X-ray and CT imaging were not consistent with findings of osteomyelitis. NADINE was obtained and was also normal. He is unfortunately unable to get an MRI due to pace maker compatibility. Patient states that he recently put an insert in his shoe which lead to a pressure ulcer on his great toe and dorsal foot. He first noticed this 5 days prior, and when it started to turn black with surrounding redness/swelling, he went to the ED for further evaluation. This morning, he states that he is doing relatively well, though he has not noticed much change in the appearance of the ulcers on his toe and foot, still has red streaking going up his leg. He is not in pain but states that he has little sensation secondary to history of neuropathy. His main concern is that he required right BKA following similar appearing ulceration/infection in the past and does not want to lose his left foot as well. He currently denies fevers, chills, abdominal pain, nausea, vomiting, chest pain, shortness of breath or other systemic symptoms. Allergies Allergy/AdvReac Type Severity Reaction Status Date / Time lisinopril Allergy Unknown Hyperkalemi Verified 11/19/19 22:09 a Home Medications Medication Instructions Recorded Confirmed Type aspirin 81 mg tablet,delayed 81 mg PO DAILY 11/19/19 11/19/19 History release carvedilol 6.25 mg tablet 3.125 mg PO BID 11/19/19 11/19/19 History cholecalciferol (vitamin D3) 25 25 mcg PO DAILY 11/19/19 11/19/19 History mcg (1,000 unit) capsule (Vitamin D3) gabapentin 300 mg capsule 300 mg PO HS 11/19/19 11/19/19 History insulin aspart U-100 100 unit/mL See Rx Instructions .Route .COMPLEX 11/19/19 11/19/19 History (3 mL) subcutaneous pen (Novolog FlexPen U-100 Insulin aspart) insulin glargine 100 unit/mL 45 unit subcut QAM 11/19/19 11/19/19 History subcutaneous solution (Lantus U-100 Insulin) levothyroxine 50 mcg tablet 50 mcg PO QAM 11/19/19 11/19/19 History metformin 500 mg tablet 500 mg PO BID 11/19/19 11/19/19 History simvastatin 20 mg tablet 20 mg PO HS 11/19/19 11/19/19 History Patient History Medical History CAD (coronary artery disease) Diabetes mellitus Diabetic neuropathy Dyslipidemia Hypothyroidism Surgical History Hx of right BKA S/P CABG (coronary artery bypass graft) S/P placement of cardiac pacemaker Social History Smoking Status: Never smoker Second Hand Exposure: No; Do You Dip or Chew Tobacco: Yes; Hx Alcohol Use: No Hx Substance Use: No Preferred Language: Bulgarian Communication Ability: Effective Inspector Experimental Assembly Required: No Beliefs That Will Affect Care: None Current Living Situation: Alone Current Living Situation Comment: Lives home alone, has fuse cutter/administrative office assistant Feels Safe at Home: Yes Safety Concerns: Feels Safe At This Time Assistive Devices: Cane and Glasses Review of Systems Review of Systems: All systems were reviewed and were negative unless otherwise stated in HPI as above. Physical Exam Physical Exam: Sitting up in chair at bedside, pleasant Musculoskeletal: RLE: BKA noted, prosthesis in place LLE: Great great toe with 5cm x 1.5cm necrotic ulcer along the medial edge with surrounding erythema and edema. Lymphangitic streaking proximally along dorsal foot and into the distal ibanez. Second smaller ulcer with central granulation tissue along medial dorsal midfoot. Absent sensation to light touch distal great toe. Toes otherwise mobile, dorsi/plantarflexion intact. D/p pulse intact Neurologic: Awake, alert and oriented. Interacting and answering questions appropriately Results & Data Vital Signs (Past 12 Hours) Vital Signs Temp Pulse Pulse Resp BP Pulse Ox O2 Del Method 04/24/23 07:40 36.8 C 71 18 112/56 L 96 Room Air 04/24/23 06:30 68 04/24/23 03:23 36.6 C 71 18 118/61 95 Room Air 04/23/23 23:54 75 04/23/23 23:02 36.8 C 82 18 144/65 H 96 Room Air Diagnostic Findings Imaging reviewed by radiologist and myself as below: Left foot x-ray: Soft tissue swelling without underlying erosive change to suggest osteomyelitis Left foot CT: No focal erosions are seen to suggest osteomyelitis Left NADINE: Normal
[2023-04-24] MEDS: carvediloL 3.125 MG TAB PO SCH ×2 (09:03→21:20)
[2023-04-24] MEDS: ASPIRIN 81 MG ECTAB PO SCH (09:03)
[2023-04-24] MEDS: HEPARIN SOD 5,000 UNIT/0.5 ML VIAL SQ SCH ×2 (09:03→21:20)
[2023-04-24] MEDS: GABAPENTIN 300 MG CAP PO SCH ×2 (09:04→21:20)
[2023-04-24] MEDS: CHOLECALCIFEROL 1,000 UNITS 25 MCG TAB PO SCH (09:04)
[2023-04-24] MEDS: INSULIN ASPART PER UNIT CHARGE SC SCH ×4 (09:40→21:12)
[2023-04-24] MEDS: LANTUS PER UNIT CHARGE SQ SCH (09:40)
--- NOTE | 2023-04-24 12:33 | Orthopedic Consultation ---
Date of Consultation April 24, 2023 Assessment & Plan (1) Skin ulcer of left great toe: Recommend limb salvage measures and surgical debridement left great toe necrotic ulcer, irrigation and possible application of Stravix skin graft substitute to be performed tomorrow. Discussed case with primary hospitalist physician. Continue IV antibiotics. N.p.o. after midnight. Thank you for the opportunity to consult in the care of this patient. Moris Ramirez DO [facility] [phone] (2) Cellulitis of left lower extremity: (3) Neuropathy due to type 2 diabetes mellitus: History of Present Illness Reason for Consultation: Patient seen in consultation regarding left great toe diabetic ulcer with necrosis. Cellulitis and neuropathy. Requesting Physician: MD Gage Beckwith DO Attending Physician: Crissy Duncan MD History of Present Illness This 87-year-old gentleman with history of right below-knee amputation 21 years prior presents with left great toe necrotic ulcer along the medial aspect of the distal left great toe which presented approximately 5 days prior after he made adjustments to his shoe wear. He noted thin clear discharge without odor and after his family was alerted to this he was then taken to [facility]. He also had new ulcer along the dorsal medial midfoot region. Allergies Allergy/AdvReac Type Severity Reaction Status Date / Time lisinopril Allergy Unknown Hyperkalemi Verified 11/19/19 22:09 a Home Medications Medication Instructions Recorded Confirmed Type aspirin 81 mg tablet,delayed 81 mg PO DAILY 11/19/19 11/19/19 History release carvedilol 6.25 mg tablet 3.125 mg PO BID 11/19/19 11/19/19 History cholecalciferol (vitamin D3) 25 25 mcg PO DAILY 11/19/19 11/19/19 History mcg (1,000 unit) capsule (Vitamin D3) gabapentin 300 mg capsule 300 mg PO HS 11/19/19 11/19/19 History insulin aspart U-100 100 unit/mL See Rx Instructions .Route .COMPLEX 11/19/19 11/19/19 History (3 mL) subcutaneous pen (Novolog FlexPen U-100 Insulin aspart) insulin glargine 100 unit/mL 45 unit subcut QAM 11/19/19 11/19/19 History subcutaneous solution (Lantus U-100 Insulin) levothyroxine 50 mcg tablet 50 mcg PO QAM 11/19/19 11/19/19 History metformin 500 mg tablet 500 mg PO BID 11/19/19 11/19/19 History simvastatin 20 mg tablet 20 mg PO HS 11/19/19 11/19/19 History Patient History Medical History CAD (coronary artery disease) Diabetes mellitus Diabetic neuropathy Dyslipidemia Hypothyroidism Surgical History Hx of right BKA S/P CABG (coronary artery bypass graft) S/P placement of cardiac pacemaker Social History Smoking Status: Never smoker Second Hand Exposure: No; Do You Dip or Chew Tobacco: Yes; Hx Alcohol Use: No Hx Substance Use: No Preferred Language: Tamazight Communication Ability: Effective Bakery [employer] Sales Manager Required: No Beliefs That Will Affect Care: None Current Living Situation: Alone Current Living Situation Comment: Lives home alone, has administrator/graduate research assistant Feels Safe at Home: Yes Safety Concerns: Feels Safe At This Time Assistive Devices: Cane and Glasses Physical Exam Constitutional: WD/WN, vitals as above Eyes: PERRL, conjunctivae normal, anicteric sclerae Wears glasses ENMT: external ear and nose normal, oropharynx normal Neck: trachea midline, no thyromegaly Respiratory: normal respiratory effort, lungs clear to auscultation Gastrointestinal (Abdomen): normal bowel sounds, soft, nontender, no hepatospl enomegaly Musculoskeletal: Patient sitting upright in bedside chair with family members present. After removal of left orthopedic shoe and insert and diabetic sock, examination revealed 3.5 cm x 1.75 cm necrotic ulcer along the medial border of the distal left great toe. Second pressure ulcer noted along the medial midfoot measuring approximately 1.5 cm x 1.5 cm. Local erythema surrounding the secondary ulcer. Nontender to palpation. No active discharge or odor. Moderate swelling to the left great toe and proximal with cellulitis and streaking just above the level of the medial ankle. Loss of epicritic sensation from the midfoot distal. Left foot is warm. Intermittent scant pulses are palpable left foot. Range of motion of the ankle and hindfoot are within normal limits. Neurologic: PERRL, EOMI, accommodation nl, no face palsy, no dysarthria Psychiatric: A+Ox3, euthymic affect Results & Data Vital Signs (Past 12 Hours) Vital Signs Temp Pulse Pulse Resp BP Pulse Ox O2 Del Method 04/24/23 07:40 36.8 C 71 18 112/56 L 96 Room Air 04/24/23 06:30 68 04/24/23 03:23 36.6 C 71 18 118/61 95 Room Air Laboratory Results Laboratories reviewed. Diagnostic Findings Diagnostic images reviewed. No evidence of acute osteomyelitis.
[2023-04-24] MEDS: ACETAMINOPHEN 325 MG TAB PO PRN ×2 (14:17→21:22)
--- NOTE | 2023-04-24 14:36 | Hospitalist Progress Note ---
Date of Service April 24, 2023 Assessment & Plan (1) Skin ulcer of left great toe: Plan: -Notably hx of R BKA -Afebrile, normal white count. Lactate normal. ESR severely elevated. CRP moderately elevated. -Radiology read of XR toe without evidence of osteo -Patient unable to have MRI foot due to pacemaker not compatible -left foot CT scan without evidence of osteomyelitis -ANDINE normal -Now s/p IV daptomycin, Zosyn in the ED -04/22 BCx NGTD and wound Cx low counts, mixed probable skin microbiota -Ortho consulted -plan for "limb salvage measures and surgical debridement of left great toe necrotic ulcer, irrigation and possible application of Stravix skin graft" tentatively on 04/25/23; NPO @[place] -Continue with daptomycin & Unasyn -no significant improvements with clinical appearance, will continue with this regiment but may need to expand pending surgical findings (2) Diabetes mellitus: Plan: -Chronic, with peripheral neuropathy on gabapentin. -Managed on metformin 500 mg twice daily, basal bolus regimen: Lantus 45 units SQ every morning, NovoLog 32 units total daily (5 units at breakfast, 5 units at lunch, 22 units with evening meal). -Has been on insulin on adjusted regimen: 30 units Lantus every morning, SSI NovoLog at mealtime (CF = 20; CR = 10; goal range 100-140). [facility]. -Continue holding metformin -Continue home gabapentin -For 04/25 am Lantus, decreased to 22 units as patient will be NPO @[place] in anticipation of surgery 04/25. Anticipate short surgery and return to PO afterwards, will keep ACHS BSG and current Novolog (3) CAD (coronary artery disease): Plan: -Chronic. S/p CABG, pacemaker implantation. Managed on aspirin, carvedilol, simvastatin. -Continue home aspirin 81 mg daily, carvedilol 3.125 mg twice daily -Due to interaction with daptomycin, hold simvastatin (4) Chronic kidney disease, stage 3: Plan: -At baseline, (stage IIIb). -Trend BMP (5) Hypothyroidism: Plan: -Continue home levothyroxine 50 mcg every morning. Plan Code: DNR/DNI Dispo: Med-Surg telemetry FEN/GI: Heart healthy/carb consistent DVT Prophylaxis: Heparin 5000 u q12h PT/OT: Yes Consults: Wound care nursing Case Management: No Admission and Anticipated Discharge Date Admission Date: April 22, 2023 Subjective Endorsing neuropathy type pain in his left lower extremity. Denies any significant changes to the erythema but daughter at bedside feels that it has worsened since admission. He denies any lightheadedness/dizziness, chest pain, shortness of breath, fevers or chills. Review of Systems Review of Systems: Per subjective Physical Exam Physical Exam: General: Well-appearing, NAD, sitting upright in bedside chair Cardiovascular: RRR, no M/R/G, though distant heart sounds Pulmonary: CTAB anteriorly Extremities: R BKA noted. L great toe medial edge with necrotic ulcer along medial edge with surrounding erythema and erythema streaking up proximally along dorsal foot. Second smaller ulcer with central granulation tissue along medial dorsal midfoot. Absent sensation to light touch distal great toe Neurologic: AAOx3, no focal deficits Psychiatric: Appropriate mood/affect Results & Data Results & Data Vital Signs (Past 12 Hours) Vital Signs Temp Pulse Pulse Resp BP Pulse Ox O2 Del Method 04/24/23 12:20 36.7 C 73 18 153/75 H 95 Room Air 04/24/23 07:40 36.8 C 71 18 112/56 L 96 Room Air 04/24/23 06:30 68 04/24/23 03:23 36.6 C 71 18 118/61 95 Room Air Laboratory Results Reviewed labs from this morning, including CBC and BMPnotable for hemoglobin dropped to 11.6, creatinine approximately stable at 1.53, fasting glucose 108 Diagnostic Findings 04/[address]: Impression: No focal erosions are seen to suggest osteomyelitis 04/23 NADINE: Impression: Normal left ankle-brachial index PG Care Time/CCT Total # of Minutes Spent Total Time Spent with Patient: Total time spent is greater than 50% in coordination of care (as documented) at patient's floor/unit and/or counseling patient: Coding Level of Care Code 09359 SUB INP/OBS CARE 3/50MIN Diagnoses Skin ulcer of left great toe L97.529 Diabetes mellitus E11.65; Z79.4 Diabetes mellitus type: type 2 Diabetes mellitus long-term insulin use: with buttermaker continuous churn use Diabetes mellitus complication status: with hyperglycemia CAD (coronary artery disease) I25.10 Chronic kidney disease, stage 3 N18.3 Hypothyroidism E03.9 (2) Diabetes mellitus Diabetes mellitus type: type 2 Diabetes mellitus buttermaker continuous churn insulin use: with buttermaker continuous churn use Diabetes mellitus complication status: with hyperglycemia Qualified Code(s): E11.65 - Type 2 diabetes mellitus with hyperglycemia; Z79.4 - senior care (current) use of insulin
[2023-04-24] MEDS: DAPTOmycin 250 MG in SYRINGE 0 ML IV SCH (21:21)
[2023-04-25] MEDS: AMPICILLIN/SULBACTAM SOD 3,000 MG in SODIUM CHLOR 0.9% MINI-B 100 ML IV SCH ×3 (02:53→20:12)
[2023-04-25] MEDS: LEVOTHYROXINE SODIUM 50 MCG TABLET PO SCH (05:34)
[2023-04-25 06:51] LABS: Hematocrit (blood only) 34.8 % (42.0-52.0); Hemoglobin 11.7 g/dl (14.0-18.0); Mean Corpuscular Hemoglobin 31.4 pg (25.0-34.0); Mean Corpuscular Hgb Conc 33.6 g/dL (32.0-36.0); Mean Corpuscular Volume 93.3 fL (80.0-100.0); Mean Platelet Volume 11.4 fL (9.4-12.4); Platelet Count 207 K/uL (130-400); RDW Coefficient of Variation 13.2 % (11.5-14.5); RDW Standard Deviation 45.1 fL (36.4-46.3); Red Blood Count 3.73 M/uL (4.70-6.10); White Blood Count 6.32 K/ul (4.8-10.8)
[2023-04-25 07:07] LABS: BUN Creatinine Ratio 16.6 (10-20); Calcium 8.9 mg/dl (8.6-10.3); Creatinine Clr Calc Pharmacy 25.7 ml/min; Est GFR (African American) 36.6 ml/min; Est GFR (Non-African American) 31.6 ml/min
--- NOTE | 2023-04-25 07:19 | Hospitalist Progress Note ---
Date of Service April 25, 2023 Assessment & Plan (1) Skin ulcer of left great toe: Plan: -Notably hx of R BKA Diabeteic foot ulcer , XR toe without evidence of osteo -Patient unable to have MRI foot due to pacemaker not compatible -left foot CT scan without evidence of osteomyelitis -NADINE normal daptomycin, Unasyn in the ED - -Ortho consulted -plan for "limb salvage measures and surgical debridement of left great toe necrotic ulcer, irrigation and possible application of Stravix skin graft" tentatively on 04/25/23; (2) Diabetes mellitus: Plan: -Chronic, with peripheral neuropathy on gabapentin. -basal bolus regimen: Lantus 45 units SQ every morning, NovoLog 32 units total daily (5 units at breakfast, 5 units at lunch, 22 units with evening meal). - -Continue holding metformin (3) CAD (coronary artery disease): Plan: -Chronic. S/p CABG, pacemaker implantation. Managed on aspirin, carvedilol, simvastatin. -Continue home aspirin 81 mg daily, carvedilol 3.125 mg twice daily -Due to interaction with daptomycin, hold simvastatin (4) Chronic kidney disease, stage 3: Plan: diaz, will start ivf (5) Hypothyroidism: Plan: -Continue home levothyroxine 50 mcg every morning. Plan Code: DNR/DNI DVT Prophylaxis: Heparin 5000 u q12h Admission and Anticipated Discharge Date Admission Date: April 22, 2023 Subjective Patient was seen postoperatively. His pain was well controlled. To me he denies diabetic neuropathy. He does have a surgical dressing in place with a postoperative shoe He tells me he lives alone and does his own cooking and typically drives his car to get groceries Physical Exam Physical Exam: Card exam is regular lungs are clear his BKA is intact his left foot has dressing in place Results & Data Results & Data Vital Signs (Past 12 Hours) Vital Signs Temp Pulse Pulse Resp BP BP Pulse Ox 04/25/23 07:00 86 04/25/23 06:55 98.4 F 89 16 94/51 L 94 04/25/23 02:25 98.2 F 80 18 95/56 L 95 04/25/23 00:30 80 04/24/23 23:14 98.4 F 83 18 122/66 95 04/24/23 19:24 97.7 F 77 18 150/76 H 97 O2 Del Method 04/25/23 07:00 04/25/23 06:55 Room Air 04/25/23 02:25 Room Air 04/25/23 00:30 04/24/23 23:14 Room Air 04/24/23 19:24 Room Air Laboratory Results Reviewed CBC reviewed PRP PG Care Time/CCT Total # of Minutes Spent Total Time Spent with Patient: Total time spent is greater than 50% in coordination of care (as documented) at patient's floor/unit and/or counseling patient: Coding Level of Care Code 39306 SUB INP/OBS CARE 3/50MIN Diagnoses Skin ulcer of left great toe L97.529 Diabetes mellitus E11.65; Z79.4 Diabetes mellitus complication status: with hyperglycemia Diabetes mellitus halfway insulin use: with halfway use Diabetes mellitus type: type 2 CAD (coronary artery disease) I25.10 Chronic kidney disease, stage 3 N18.3 Hypothyroidism E03.9 (2) Diabetes mellitus Diabetes mellitus complication status: with hyperglycemia Diabetes mellitus terminal carman insulin use: with terminal carman use Diabetes mellitus type: type 2 Qualified Code(s): E11.65 - Type 2 diabetes mellitus with hyperglycemia; Z79.4 - [facility] (current) use of insulin
[2023-04-25] MEDS ORDERED: SODIUM CHLORIDE 0.9% 1,000 ML IV SCH (07:30)
[2023-04-25] MEDS: INSULIN ASPART PER UNIT CHARGE SC SCH ×4 (09:23→20:40)
[2023-04-25] MEDS: GABAPENTIN 300 MG CAP PO SCH ×2 (09:34→20:09)
[2023-04-25] MEDS: ASPIRIN 81 MG ECTAB PO SCH (09:34)
[2023-04-25] MEDS: carvediloL 3.125 MG TAB PO SCH ×2 (09:34→20:09)
[2023-04-25] MEDS: CHOLECALCIFEROL 1,000 UNITS 25 MCG TAB PO SCH (09:34)
[2023-04-25] MEDS: LANTUS PER UNIT CHARGE SQ SCH (09:45)
[2023-04-25] MEDS ORDERED: ONDANSETRON INJ 2 MG/ML 2 ML VIAL ONE (09:55)
[2023-04-25] MEDS ORDERED: PROPOFOL IV EMULSION 10 MG/ML 20 ML VIAL IV ONE (09:55)
[2023-04-25] MEDS ORDERED: fentaNYL citrate PF 100 MCG/2 ML VIAL ONE (09:55)
[2023-04-25] MEDS ORDERED: BUPIVACAINE 0.5 % 5 MG/1 ML MPF 30ML VIAL ONE (10:18)
[2023-04-25] MEDS ORDERED: fentaNYL citrate PF 100 MCG/2 ML VIAL IV PRN (10:27)
[2023-04-25] MEDS ORDERED: ONDANSETRON INJ 2 MG/ML 2 ML VIAL IV PRN (10:27)
[2023-04-25] MEDS ORDERED: ePHEDrine sulfate 50 MG/ML AMP IV PRN (10:27)
[2023-04-25] MEDS ORDERED: ATROPINE SULFATE 0.1 MG/ML 10ML SYR IV PRN (10:27)
--- NOTE | 2023-04-25 10:27 | Anesthesiology Consultation ---
Date of Service April 25, 2023 Assessment & Plan Chart Review Chart Review: Acceptable Risk for Surgery and Patient NOT seen in Pre Admission Testing Consults Requested none ASA ASA3 Proposed Anesthesia Anesthesia Type: MAC Risk / Benefits Reviewed With: PT / POA / Parent / Guardian, Accepts Plan and Informed Consent Obtained History Surgery Operation Date: 04/25/23 07:00 Proposed Procedures p Debridement Diabetic Ulcer Left Great Toe to Fascia, Applicate Rhett Ramirez, Height/Weight Height: 5 ft 4 in Weight: 74.7 kg Allergies Allergy/AdvReac Type Severity Reaction Status Date / Time lisinopril Allergy Unknown Hyperkalemi Verified 11/19/19 22:09 a Medications Home Medications Medication Instructions Recorded Confirmed Last Taken aspirin 81 mg tablet,delayed 81 mg PO DAILY 11/19/19 11/19/19 Unknown release carvedilol 6.25 mg tablet 3.125 mg PO BID 11/19/19 11/19/19 Unknown cholecalciferol (vitamin D3) 25 25 mcg PO DAILY 11/19/19 11/19/19 Unknown mcg (1,000 unit) capsule (Vitamin D3) gabapentin 300 mg capsule 300 mg PO HS 11/19/19 11/19/19 Unknown insulin aspart U-100 100 unit/mL See Rx Instructions .Route .COMPLEX 11/19/19 11/19/19 Unknown (3 mL) subcutaneous pen (Novolog FlexPen U-100 Insulin aspart) insulin glargine 100 unit/mL 45 unit subcut [facility] 11/19/19 11/19/19 Unknown subcutaneous solution (Lantus U-100 Insulin) levothyroxine 50 mcg tablet 50 mcg PO [facility] 11/19/19 11/19/19 Unknown metformin 500 mg tablet 500 mg PO BID 11/19/19 11/19/19 Unknown simvastatin 20 mg tablet 20 mg PO 11/19/19 11/19/19 Unknown Active Medications Generic Name Dose Route Start Last Admin Trade Name Freq PRN Reason Stop Dose Admin Acetaminophen 650 mg 04/23/23 23:13 04/24/23 21:22 Acetaminophen 325 Mg Tab PO 05/23/23 23:12 650 mg Q4H PRN Administration pain Aspirin 81 mg 04/23/23 09:00 04/25/23 09:34 Aspirin 81 Mg Ectab PO 05/23/23 08:59 81 mg DAILY YENNI Administration Carvedilol 3.125 mg 04/23/23 09:00 04/25/23 09:34 Carvedilol 3.125 Mg Tab PO 05/23/23 08:59 3.125 mg BID YENNI Administration Gabapentin 300 mg 04/23/23 21:00 04/25/23 09:34 Gabapentin 300 Mg Cap PO 05/23/23 20:59 300 mg BID YENNI Administration Heparin Sodium (Porcine) 5,000 units 04/23/23 09:00 04/24/23 21:20 Heparin Sod 5,000 Unit/0.5 Ml Vial SQ 05/23/23 08:59 5,000 units Q12 YENNI Administration Daptomycin 250 mg/ Syringe 5 mls @ 2.5 mls/min 04/23/23 22:00 04/24/23 21:21 IV 04/29/23 21:59 2.5 mls/min Q24H YENNI Administration Protocol Ampicillin Sodium/Sulbactam 100 mls @ 100 mls/hr 04/23/23 15:00 04/25/23 09:48 Sodium 3,000 mg/ Sodium IV 04/30/23 14:59 100 mls/hr Chloride Q6H YENNI Administration Sodium Chloride 1,000 mls @ 80 mls/hr 04/25/23 07:30 04/25/23 07:29 Nss IV 05/25/23 07:29 80 mls/hr .[id number] YENNI Administration Insulin Aspart 0 units 04/23/23 07:30 04/25/23 09:23 Insulin Aspart Per Unit Charge SC 05/23/23 07:29 Not Given ACHS [facility] Insulin Glargine 22 units 04/25/23 09:00 04/25/23 09:45 Lantus Per Unit Charge SQ 05/25/23 08:59 11 units QAM YENNI Administration Levothyroxine Sodium 50 mcg 04/23/23 06:30 04/25/23 05:34 Levothyroxine Sodium 50 Mcg Tablet PO 05/23/23 06:29 50 mcg DAILYBB YENNI Administration Vitamin D 1,000 units 04/23/23 09:00 04/25/23 09:34 Cholecalciferol 1,000 Units 25 Mcg Tab PO 05/23/23 08:59 1,000 units DAILY YENNI Administration NPO Date Last Intake of Fluids: 04/24/23 Time Last Intake of Fluids: 22:00 Date Last Intake of Solids: 04/24/23 Time Last Intake of Solids: 22:00 Past Medical History Medical History CAD (coronary artery disease) Diabetes mellitus Diabetic neuropathy Dyslipidemia Hypothyroidism Exercise / Class Metabolic Activity II 4-5 Yardwork/Stairs/Walk up hill Past Surgical History Surgical History Hx of right BKA S/P CABG (coronary artery bypass graft) S/P placement of cardiac pacemaker Past Anesthesia History No Hx of Anesthesia Complications and No Family Hx of Anesthesia Complications History of PONV No Hx of PONV and No Hx of Motion Sickness Social History Smoking Status: Never smoker Do You Dip or Chew Tobacco: Yes Hx Alcohol Use: No alcohol intake frequency: holidays/special occasions only Hx Substance Use: No Physical Exam Vital Signs Last Vital Signs Temp 36.7 C 04/25/23 09:58 Pulse 79 04/25/23 09:58 Resp 20 04/25/23 09:58 BP 136/71 04/25/23 09:58 Pulse Ox 91 04/25/23 09:58 O2 Del Method Room Air 04/25/23 09:58 ENMT Mouth: + edentulous Thyromental Distance: > or= 3.5 Finger Breadths Mallampati Class: II Neck normal visual inspection Respiratory normal respiratory effort Auscultation: lungs clear to auscultation bilaterally Cardiovascular Rate/Rhythm: regular rate and regular rhythm Chest (Breasts) Chest: + pacemaker (left chest) Musculoskeletal Extremities: + amputation noted (R BKA) Psychiatric Orientation: alert Testing Laboratory Results 04/25/23 05:54 04/25/23 05:54 Hemoglobin A1c 8.2 % (4.5-5.6) H 04/23/23 05:29 04/22/23 15:24 Aerobic Blood Culture - Preliminary Blood No growth in Aerobic bottle after 48 hours. Anaerobic Blood Culture - Preliminary No growth in Anaerobic bottle after 48 hours. 04/22/23 15:24 Aerobic Blood Culture - Preliminary Blood No growth in Aerobic bottle after 48 hours. Anaerobic Blood Culture - Preliminary No growth in Anaerobic bottle after 48 hours. 04/22/23 Unknown Gram Stain - Final Toe,Left Great Wound Culture - Final Low counts mixed probable skin microbiota. No further identifications or sensitivities to follow. 04/25/23 07:01 POC Glucose 96
[2023-04-25] MEDS: HEPARIN SOD 5,000 UNIT/0.5 ML VIAL SQ SCH (10:28)
[2023-04-25] MEDS ORDERED: ceFAZolin 330 MG/ML 1 GM VIAL ONE (10:46)
--- NOTE | 2023-04-25 10:46 | History & Physical Bridge Note ---
Date of Service April 25, 2023 History & Physical Bridge Note I have examined the patient, reviewed the History & Physical and in the interval since the performance of the History & Physical I have noted the following changes of clinical significance: no changes noted
[2023-04-25] MEDS ORDERED: PHENYLEPHRINE 100MCG/ML 5ML SYR ONE (11:26)
--- NOTE | 2023-04-25 12:18 | Anesthesiology Progress Note ---
Date of Service April 25, 2023 Anesthesia Post Procedure Vital Signs Vital Signs: Temp Pulse Pulse Pulse Resp BP BP 04/25/23 12:00 75 16 108/65 04/25/23 12:10 36.7 C 75 20 120/62 04/25/23 11:52 37 C 78 16 121/62 04/25/23 09:58 36.7 C 79 20 136/71 04/25/23 07:21 36.6 C 91 H 16 106/66 04/25/23 07:00 86 04/25/23 06:55 36.9 C 89 16 94/51 L 04/25/23 02:25 36.8 C 80 18 95/56 L 04/25/23 00:30 80 04/24/23 23:14 36.9 C 83 18 122/66 04/24/23 19:24 36.5 C 77 18 150/76 H 04/24/23 14:00 74 04/24/23 15:52 36.4 C L 73 18 127/69 04/24/23 12:20 36.7 C 73 18 153/75 H Pulse Ox O2 Del Method O2 Flow Rate 04/25/23 12:00 100 Oxymask 11 04/25/23 12:10 93 Room Air 04/25/23 11:52 99 Oxymask 11 04/25/23 09:58 91 Room Air 04/25/23 07:21 95 Room Air 04/25/23 07:00 04/25/23 06:55 94 Room Air 04/25/23 02:25 95 Room Air 04/25/23 00:30 04/24/23 23:14 95 Room Air 04/24/23 19:24 97 Room Air 04/24/23 14:00 04/24/23 15:52 94 Room Air 04/24/23 12:20 95 Room Air Transfer of Care Handoff Completed per policy Notes Mental Status: alert / awake / arousable Patient Amnestic to Procedure: Yes Nausea / Vomiting: adequately controlled Pain: adequately controlled Airway Patency, RR, SpO2: stable & adequate BP & HR: stable & adequate Hydration State: stable & adequate Anesthetic Complications: no major complications apparent
--- NOTE | 2023-04-25 12:26 | Operative Report ---
Post Operative Report Pre & Post Diagnosis Operation Date: 04/25/23 07:00 Pre Op diagnosis: Left great toe necrotic ulcer 3.0 cm x 1.75 cm, necrosis to bone, medial foot ulcer 2.0 cm x 1.5 cm with necrosis to dermis, diabetes mellitus type 2, cellulitis, diabetic neuropathy Post Op diagnosis: Left great toe necrotic ulcer 3.0 cm x 1.75 cm, necrosis to bone, medial foot ulcer 2.0 cm x 1.5 cm with necrosis to dermis, diabetes mellitus type 2, cellulitis, diabetic neuropathy I identified the patient and participated in the time-out.: Yes Procedure Operation Date: 04/25/23 07:00 Procedure: Left great toe irrigation and debridement chronic ulcer to level of bone 3.0 cm x 1.5 cm, Irrigation and debridement medial foot ulcer to level of dermis 2.0 cm x 1.5 cm, Application Stravix tissue allograft 4.0 cm x 2.0 cm Surgeon Moris Ramirez, Inside Horticultural Specialty Grower None Estimated Blood Loss 1 Findings Consistent with Post-Op Diagnosis Specimens None Drains None Anesthesia Type MAC Regional Complications none Disposition Accompanied Patient To Recovery: No Indications This is an 87-year-old gentleman with diabetes, neuropathy and other associated medical comorbidities who presented with a 5-day history of large necrotic ulcer with blackened eschar medial great toe. He had just changed some shoewear and noticed severe ulceration of the great toe as well as a secondary ulcer to the left medial midfoot. He presented with redness and streaking of the left foot and was placed on IV antibiotics on the hospitalist service. Orthopedics was consulted and patient was scheduled for surgery as indicated for the above-noted procedure. Description of Procedure All potential risks, benefits, complications, alternatives, rehab, need for further surgery, potential for incomplete relief of symptoms, neurovascular injury, DVT, PE, , stiffness, weakness, loss of function, persistent pain, swelling, numbness and wound complications were discussed with the patient and family. The patient and family decided to proceed with the procedure as indicated. The patient was taken to the operative suite and placed supine on the operating room table. After review of the consent and identification of the proper operative site, the patient was sedated. After sterile prep of the left great toe with ChloraPrep, digital regional block was performed. The left lower extremity was sterilely prepped and draped in the usual fashion. A 4 inch Esmarch bandage was used to exsanguinate the left foot to the level of the ankle and a tourniquet was applied at the level of the ankle over a surgical towel to control hemostasis and prevent bleeding. After surgical timeout was performed, a digital block was then performed of the left great toe with approximate 10 cc 0.5% Marcaine. A 15 blade scalpel was then used to debride the 3.0 cm x 1.5 cm necrotic ulcer with eschar down to bleeding tissue. The distal medial tip of the great toe distal phalanx was noted to have a thin layer of fascia overlying. This was sharply debrided down to the level of the bone with a 15 blade scalpel. There is no evidence of obvious softening of the bone. The remainder of the surrounding soft tissue was then carefully debrided with a 15 blade scalpel and a small rongeur to remove any devitalized tissue. The site was then copiously irrigated with sterile saline with Ancef until clear. Next attention was then directed to the 2.0 cm x 1.5 cm ulcer along the medial midfoot sharply debrided down to level of dermis with a 15 blade scalpel. The site was also irrigated with sterile saline until clear and then the Stravix tissue allograft was then reconstituted in saline for approximate 5 minutes until reconstituted fully and then this was then sectioned with a 15 blade scalpel shaped to fit on the ulceration of the great toe. This tissue allograft was then sutured in place using multiple 3-0 Monocryl sutures along the periphery. Next the remaining piece of Stravix was then applied to the ulceration on the midfoot. Next the sterile compressive dressing was applied consisting of Adaptic, sterile 4 x 4's, 2 inch Conform roll 4 inch cast pad and a 4 inch Joey wrap. The tourniquet was then removed from the left ankle and normal hyperemic response returned to the great toe and lesser toes. Next the patient was then awakened and taken to recovery in stable condition. I attest to the content of the Intraoperative Record and any orders documented therein. Any exceptions are noted below.
[2023-04-26] MEDS: LEVOTHYROXINE SODIUM 50 MCG TABLET PO SCH (06:31)
--- NOTE | 2023-04-26 07:56 | Hospitalist Progress Note ---
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 -basal bolus regimen: Lantus 45 units SQ every morning, NovoLog 32 units total daily (5 units at breakfast, 5 units at lunch, 22 units with evening meal). - -Continue holding metformin (3) CAD (coronary artery disease): Plan: -Chronic. S/p CABG, pacemaker implantation. Managed on aspirin, carvedilol, simvastatin. -Continue home aspirin 81 mg daily, carvedilol 3.125 mg twice daily -Due to interaction with daptomycin, hold simvastatin (4) Chronic kidney disease, stage 3: Plan: diaz, will start ivf (5) Hypothyroidism: Plan: -Continue home levothyroxine 50 mcg every morning. Plan Code: DNR/DNI DVT Prophylaxis: Heparin 5000 u q12h Admission and Anticipated Discharge Date Admission Date: April 22, 2023 Subjective patient was seen he was in good condition dressing was in place awaiting physical therapy evaluation Physical Exam Physical Exam: Card exam is regular lungs are clear his BKA is intact his left foot has dressing in place Results & Data Results & Data Vital Signs (Past 12 Hours) Vital Signs Temp Pulse Pulse Resp BP Pulse Ox O2 Del Method 04/26/23 03:18 98.4 F 78 18 118/63 96 Room Air 04/25/23 23:07 98.1 F 74 18 124/67 94 Room Air 04/25/23 22:22 73 PG Care Time/CCT Total # of Minutes Spent Total Time Spent with Patient: Total time spent is greater than 50% in coordination of care (as documented) at patient's floor/unit and/or counseling patient: Coding Level of Care Code 37590 SUB INP/OBS CARE 2/35MIN Diagnoses Skin ulcer of left great toe L97.529 Diabetes mellitus E11.65; Z79.4 Diabetes mellitus complication status: with hyperglycemia Diabetes mellitus care home insulin use: with care home use Diabetes mellitus type: type 2 CAD (coronary artery disease) I25.10 Chronic kidney disease, stage 3 N18.3 Hypothyroidism E03.9 (2) Diabetes mellitus Diabetes mellitus complication status: with hyperglycemia Diabetes mellitus adjunct faculty for medical terminology insulin use: with adjunct faculty for medical terminology use Diabetes mellitus type: type 2 Qualified Code(s): E11.65 - Type 2 diabetes mellitus with hyperglycemia; Z79.4 - termite treater helper (current) use of insulin
[2023-04-26] MEDS: AMPICILLIN/SULBACTAM SOD 3,000 MG in SODIUM CHLOR 0.9% MINI-B 100 ML IV SCH ×2 (08:02→20:05)
[2023-04-26] MEDS: carvediloL 3.125 MG TAB PO SCH ×2 (08:02→20:03)
[2023-04-26] MEDS: ASPIRIN 81 MG ECTAB PO SCH (08:02)
[2023-04-26] MEDS: CHOLECALCIFEROL 1,000 UNITS 25 MCG TAB PO SCH (08:02)
[2023-04-26] MEDS: GABAPENTIN 300 MG CAP PO SCH ×2 (08:02→20:03)
[2023-04-26 08:06] LABS: Hematocrit (blood only) 35.9 % (42.0-52.0); Hemoglobin 11.9 g/dl (14.0-18.0); Mean Corpuscular Hgb Conc 33.1 g/dL (32.0-36.0); Mean Corpuscular Volume 93.5 fL (80.0-100.0); Mean Platelet Volume 11.2 fL (9.4-12.4); Platelet Count 226 K/uL (130-400); RDW Coefficient of Variation 13.7 % (11.5-14.5); RDW Standard Deviation 46.2 fL (36.4-46.3); Red Blood Count 3.84 M/uL (4.70-6.10); White Blood Count 5.88 K/ul (4.8-10.8)
[2023-04-26 08:28] LABS: BUN Creatinine Ratio 16.4 (10-20); Calcium 9.2 mg/dl (8.6-10.3); Creatinine Clr Calc Pharmacy 27.4 ml/min; Est GFR (African American) 39.2 ml/min; Est GFR (Non-African American) 33.8 ml/min; Potassium 4.6 mmol/L (3.5-5.1)
[2023-04-26] MEDS: INSULIN ASPART PER UNIT CHARGE SC SCH ×4 (08:52→20:10)
[2023-04-26] MEDS: LANTUS PER UNIT CHARGE SQ SCH (08:52)
[2023-04-26] MEDS: ACETAMINOPHEN 325 MG TAB PO PRN (15:10)
--- NOTE | 2023-04-26 18:35 | Orthopedic Progress Note ---
Date of Service April 26, 2023 Assessment & Plan (1) Skin ulcer of left great toe: Plan: Status post limb salvage measures and surgical debridement left great toe necrotic ulcer, irrigation and application of Stravix skin graft substitute POD#1. Continue IV antibiotics. May transition to culture specific p.o. antibiotics for a 4-week duration upon discharge. May heel weight-bear with postoperative shoe. Keep sterile dry dressing in place. Avoid pressure to the medial great toe Thank you for the opportunity to consult in the care of this patient. Moris Ramirez [facility] orthopedic [place] [phone] (2) Cellulitis of left lower extremity: (3) Neuropathy due to type 2 diabetes mellitus: Admission and Anticipated Discharge Date Admission Date: April 22, 2023 Subjective Patient seen during rounds. Patient was sitting up at bedside chair finishing dinner. No complaints of pain. Denies fever, chills, nausea, vomiting, diarrhea, shortness of breath or chest pain. Physical Exam Constitutional: WD/WN, vitals as above Eyes: PERRL, conjunctivae normal, anicteric sclerae ENMT: external ear and nose normal, oropharynx normal Neck: trachea midline, no thyromegaly Respiratory: normal respiratory effort, lungs clear to auscultation Gastrointestinal (Abdomen): normal bowel sounds, soft, nontender, no hepatosplenomegaly Musculoskeletal: Dressing left lower extremity clean, dry and intact. No evidence of strikethrough. Lesser toes are pink and warm. Capillary refill is brisk. Compartments are soft. Homans negative. Neuropathy is persistent left lower extremity. Neurologic: PERRL, EOMI, accommodation nl, no face palsy, no dysarthria Psychiatric: A+Ox3, euthymic affect Results & Data Vital Signs (Past 12 Hours) Vital Signs Temp Pulse Pulse Resp BP Pulse Ox O2 Del Method 04/26/23 15:20 36.8 C 71 18 116/66 96 Room Air 04/26/23 15:05 70 04/26/23 11:22 36.7 C 69 69 H 122/65 96 Room Air 04/26/23 09:04 73 04/26/23 09:01 Room Air 04/26/23 08:30 37.1 C 75 18 121/69 95 Room Air Diagnostic Findings Reviewed.
[2023-04-26] MEDS ORDERED: DAPTOmycin 250 MG in SYRINGE 0 ML IV SCH (21:00)
[2023-04-27] MEDS: ACETAMINOPHEN 325 MG TAB PO PRN (02:48)
[2023-04-27] MEDS: LEVOTHYROXINE SODIUM 50 MCG TABLET PO SCH (06:13)
[2023-04-27] MEDS: GABAPENTIN 300 MG CAP PO SCH (08:00)
[2023-04-27] MEDS: CHOLECALCIFEROL 1,000 UNITS 25 MCG TAB PO SCH (08:00)
[2023-04-27] MEDS: ASPIRIN 81 MG ECTAB PO SCH (08:00)
[2023-04-27] MEDS: carvediloL 3.125 MG TAB PO SCH (08:00)
[2023-04-27 08:01] LABS: Hematocrit (blood only) 35.3 % (42.0-52.0); Hemoglobin 11.6 g/dl (14.0-18.0); Mean Corpuscular Hemoglobin 30.5 pg (25.0-34.0); Mean Corpuscular Hgb Conc 32.9 g/dL (32.0-36.0); Mean Corpuscular Volume 92.9 fL (80.0-100.0); Mean Platelet Volume 11.1 fL (9.4-12.4); Platelet Count 219 K/uL (130-400); RDW Coefficient of Variation 13.2 % (11.5-14.5); RDW Standard Deviation 44.9 fL (36.4-46.3); White Blood Count 6.35 K/ul (4.8-10.8)
[2023-04-27] MEDS: AMPICILLIN/SULBACTAM SOD 3,000 MG in SODIUM CHLOR 0.9% MINI-B 100 ML IV SCH (08:04)
[2023-04-27 08:17] LABS: BUN Creatinine Ratio 19.9 (10-20); Calcium 9.4 mg/dl (8.6-10.3); Creatinine Clr Calc Pharmacy 27.6 ml/min; Est GFR (African American) 39.4 ml/min; Potassium 4.3 mmol/L (3.5-5.1)
[2023-04-27] MEDS: LANTUS PER UNIT CHARGE SQ SCH (08:59)
[2023-04-27] MEDS: INSULIN ASPART PER UNIT CHARGE SC SCH (08:59)
--- NOTE | 2023-04-27 15:22 | Discharge Summary ---
Date of Service April 27, 2023 Admission HPI Per Admitting Provider Ziyad is an 87-year-old man with a history of CKD 3, coronary artery disease s/p CABG, pacemaker, T2DM, and right BKA, who presented to the emergency room with a complaint of worsening ulceration and discoloration of left great toe since Tuesday. Patient wears a shoe liner in his left foot for support. He reports walking more than usual on his walker in his home, after which she noticed the initial ulceration. This morning, his son noticed that the ulcer had turned black and urged him to come to the emergency room for further evaluation. He denies fever, chills, purulent discharge, or swelling of the foot. In the ED, vitals are within normal limits. Notable labs include: ESR 83/CRP 6.59, BSG 159, Cr 1.67, alk phos 110. WBC was normal at 8.67. Lactate was normal at 1.6. XR toe pending radiology read at time of admission. He received IV Zosyn and daptomycin, and hospitalist service was consulted for admission. Principal Diagnosis diabetic foot ulcer toe with partial debridement and resection 04/25/2023 Dr. Trevor Ramirez Discharge Exam awake alert appropriate good condition able to ambulate with his prosthetic right leg dressing in place on his left toe Discharge Data Allergies Allergy/AdvReac Type Severity Reaction Status Date / Time lisinopril Allergy Unknown Hyperkalemi Verified 11/19/19 22:09 a Consultations 04/22/23 21:16 ED Decision to Admit Stat 04/23/23 11:19 Consult Orthopedic Surgery Routine Procedures Performed Operation Date: 04/25/23 07:00 Actual Procedures p Debridement Diabetic Ulcer Left Great Toe to Fascia, Applicate Strayix(Left) - Moris Ramirez DO Ordered Studies 04/23/23 14:13 CT foot LT wo con Routine US ankle/brachial index ltd Routine Hospital Course (1) Skin ulcer of left great toe: -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 Trevor Ramirez performed debridement of the left great toe to fascia and application of Strayix patient we discharged on Augmentin therapy. Cultures are negative time of discharge (2) Diabetes mellitus: -Chronic, with peripheral neuropathy on gabapentin. resume his metformin, home Lantus 30 5 AM and insulin sliding scale). - (3) CAD (coronary artery disease): -Chronic. S/p CABG, pacemaker implantation. Managed on aspirin, carvedilol, simvastatin. -Continue home aspirin 81 mg daily, carvedilol 3.125 mg twice daily - now is off daptomycin will resume simvastatin (4) Chronic kidney disease, stage 3: diaz, resolved (5) Hypothyroidism: -Continue home levothyroxine 50 mcg every morning. Plan Code: DNR/DNI Total Time Total Time Spent Total Time Spent (In Minutes): it required greater than 30 minutes to prepare this patient for discharge Discharge Plan Discharge Items Patient Disposition: Home - Self-Care Reason For Visit: SKIN PROBLEM Discharge Diagnosis: diabetic toe ulcer with surgical correction Activity: Per Instructions section Activity Comment: elevate wound when resting Non-emergency contact: Primary Care Provider Call non-emergency contact if: your symptoms worsen Follow-up/Referrals: Moris Ramirez DO [Surgeon] - [facility] [Primary Care Provider] - Diet: Carb Consistent or DM2 Addtl Attending Provider Instructions: please call the Al for an appointment and to arrange wound care for your toe also have follow up with surgeon DR Ramirez Pending Studies at Discharge: No Stand-Alone Forms: My [facility] Kranem, Smoking Cessation Medications and DC Order Prescriptions: New amoxicillin-pot clavulanate 875-125 mg tablet 1 tab PO BID Qty: 10 0RF Continued metformin 500 mg Tablet 500 mg PO BID carvedilol 6.25 mg Tablet 3.125 mg PO BID Rx Instructions: TAKE HALF A TABLET TWICE DAILY insulin glargine [Lantus U-100 Insulin] 100 unit/mL Solution 35 unit SUBCUT QAM aspirin 81 mg Tablet,Delayed Release (Dr/Ec) 81 mg PO DAILY levothyroxine 50 mcg Tablet 50 mcg PO QAM simvastatin 20 mg Tablet 20 mg PO HS gabapentin 300 mg Capsule 300 mg PO HS cholecalciferol (vitamin D3) [Vitamin D3] 25 mcg (1,000 unit) Capsule 25 mcg PO DAILY insulin aspart U-100 [Novolog FlexPen U-100 Insulin] 100 unit/mL (3 mL) Insulin Pen See Rx Instructions .ROUTE .COMPLEX Rx Instructions: ADMINISTER 8 UNITS WITH BREAKFAST, 8 UNITS WITH LUNCH AND 10 UNITS WITH EVENING MEAL Discharge Orders: Discharge Order (Routine); Ordered 04/27/23 Ordered By: Haseeb Ramos/Other Patient Handouts: Nutrition for Wound Healing, Managing Type 2 Diabetes Admission Data Admit Date/Time: 04/22/23 21:57 Attending Provider: Haseeb Ragsdale Admit Provider: Rosita Orellana Primary Care Provider: [facility] Other Providers: Sheldon De Dios ; Jacky Hernandez Other Interventions: Discharge Summary Assessment (RN) Last Done: 04/27/23 09:22 Coding Level of Care Code 32355 INP/OBS DISCH >30 MIN Diagnoses Skin ulcer of left great toe L97.529 Diabetes mellitus E11.65; Z79.4 Diabetes mellitus type: type 2 Diabetes mellitus rodent exterminator insulin use: with rodent exterminator use Diabetes mellitus complication status: with hyperglycemia CAD (coronary artery disease) I25.10 Chronic kidney disease, stage 3 N18.3 Hypothyroidism E03.9
== END 2023-04-27 10:27 | disposition home or self-care (01) | DRG 623 ==
LOC: ED 14:38 → 2N 21:57 → SUATTDRO 21:57 → 2N 23:22